=== PATIENT | male | born 1985 | race Caucasian/White ===

== ENCOUNTER 2016-10-07 09:54 | Inpatient (IN) ==
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
[2016-10-07 11:16] LABS: Hematocrit 37.6 % (37.5-50.1); Mean Corpuscular HGB Conc 34.6 g/dL (31.6-35.5); Mean Corpuscular Volume 89.5 fL (83.0-100.0); Mean Platelet Volume 8.8 fL (9.4-12.4); Platelet Count 169 K/mcL (140-400); Red Cell Distribution Width 13.3 % (11.5-14.5)
[2016-10-07 11:18] LABS: VBG PH 7.48 pH Units (7.32-7.42)
[2016-10-07 11:19] LABS: VBG HCO3 23.8 mEq/L (21-27)
[2016-10-07 11:28] LABS: BUN/Creatinine Ratio 11 (6-26); Blood Urea Nitrogen 13 mg/dL (8-26); Calcium 8.6 mg/dL (8.6-10.8); Carbon Dioxide 19 mEq/L (19-29); Chloride 104 mEq/L (98-109); Glucose 140 mg/dL (70-99); Osmolality,Calculated 284 (280-300); Potassium 3.1 mEq/L (3.5-4.5); Sodium 136 mEq/L (136-145); eGFR For African Americans > 60 (> 60); eGFR For Non-African Americans > 60 (> 60)
[2016-10-07 11:30] LABS: Ethanol < 10 mg/dL (0-10)
[2016-10-07 11:47] LABS: Lymphocytes # 0.2 K/mcL (0.6-4.6); Monocytes # 0.2 K/mcL (0.0-1.3); Neutrophils # 8.1 K/mcL (1.6-8.9); Platelet Estimate Normal (Normal)
[2016-10-07] MEDS ORDERED: 0.9 % Sodium Chloride 1,000 ML IVC ONE ×2 (11:54→13:46)
[2016-10-07 13:23] LABS: Amphetamine Screen,Urine Negative ng/mL (Cutoff=1000); Barbiturate Screen,Urine Negative ng/mL (Cutoff=200); Benzodiazepines Screen,Urine Positive ng/mL (Cutoff=200); Cannabinoid Screen,Urine Positive ng/mL (Cutoff = 50); Cocaine Screen,Urine Positive ng/mL (Cutoff= 300); Opiate Screen,Urine Positive ng/mL (Cutoff=300); Phencyclidine Screen,Urine Negative ng/mL (Cutoff=25)
[2016-10-07] MEDS ORDERED: Vancomycin 1,250 MG in D5% in Water 250 ML IVPB ONE (13:46)
[2016-10-07] MEDS ORDERED: Piperacillin/Tazobactam 3.375 GM in D5% in Water (Mini-Bag+) 100 ML IVPB ONE (13:46)
[2016-10-07] MEDS ORDERED: Acetaminophen 325 MG TABLET PO PRN (14:48)
[2016-10-07] MEDS ORDERED: Naloxone 0.4 MG/ML INJ IVP PRN (14:48)
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
--- NOTE | 2016-10-07 16:19 | Electrocardiograph Report ---
[place] [id number] Test Date: 2016-10-07 Pat Name: Javier Madrid Department: 103 Room: 2N4 Gender: M Bench Hand Machine: : 1985 Requested By: Chepe Avilez Order Number: [id number] Reading MD: Mehnaz Bartholomew Measurements Intervals [place] Rate: 118 P: 35 [place]: 136 QRS: 60 QRSD: 90 T: -9 QT: 304 QTc: 374 Interpretive Statements SINUS TACHYCARDIA NONSPECIFIC T-WAVE ABNORMALITY Electronically Signed On 10-07-2016 16:17:33 EST by Menhaz Bartholomew
[2016-10-07 17:03] LABS: Bilirubin,Urine Negative (Negative); Blood,Urine Negative (Negative); Clarity,Urine Clear (Clear); Color,Urine Yellow (Yellow); Glucose,Urine (UA) Normal (Normal); Ketones,Urine Negative (Negative); Leukocyte Esterase,Urine Negative (Negative); Nitrite,Urine Negative (Negative); Protein,Urine Negative (Neg-Trace); Specific Gravity,Urine 1.021 (1.010-1.025); Urobilinogen,Urine Normal (Normal)
[2016-10-07] MEDS: Aspirin 81 MG TAB.CHEW PO SCH (17:45)
[2016-10-07] MEDS: 0.9 % Sodium Chloride w KCl 20 MEQ/1,000 ML MLS IVC SCH (17:45)
[2016-10-07] MEDS: Famotidine 20 MG TABLET PO SCH (20:58)
[2016-10-07] MEDS ORDERED: Piperacillin/Tazobactam 3.375 GM in D5% in Water (Mini-Bag+) 100 ML IVPB SCH (21:00)
[2016-10-08] MEDS: Piperacillin/Tazobactam 3.375 GM in D5% in Water (Mini-Bag+) 100 ML IVPB SCH ×4 (00:42→23:30)
[2016-10-08] MEDS: Vancomycin 1,000 MG in D5% in Water 250 ML IVPB SCH ×2 (02:50→14:19)
[2016-10-08] MEDS ORDERED: Vancomycin 1,000 MG VIAL ONE (03:00)
[2016-10-08] MEDS: 0.9 % Sodium Chloride w KCl 20 MEQ/1,000 ML MLS IVC SCH (05:55)
[2016-10-08 06:00] LABS: Hematocrit 32.7 % (37.5-50.1); Mean Corpuscular HGB Conc 33.9 g/dL (31.6-35.5); Mean Corpuscular Hemoglobin 31.4 pg (28.0-33.3); Mean Corpuscular Volume 92.4 fL (83.0-100.0); Mean Platelet Volume 9.7 fL (9.4-12.4); Platelet Count 145 K/mcL (140-400); Red Blood Count 3.54 M/mcL (4.19-5.50); Red Cell Distribution Width 14.1 % (11.5-14.5)
[2016-10-08] MEDS: *HR* Enoxaparin 40 MG/0.4 ML SYRINGE SQ SCH (06:10)
[2016-10-08 06:17] LABS: Alanine Aminotransferase 44 Units/L (0-55); Albumin 2.6 g/dL (3.5-5.0); Albumin/Globulin Ratio 0.8 (1.1-2.2); Alkaline Phosphatase 37 Units/L (38-126); Aspartate Amino Transferase 41 Units/L (5-34); BUN/Creatinine Ratio 15 (6-26); Bilirubin,Total 0.7 mg/dL (0.2-1.2); Blood Urea Nitrogen 16 mg/dL (8-26); Calcium 7.8 mg/dL (8.6-10.8); Carbon Dioxide 22 mEq/L (19-29); Chloride 114 mEq/L (98-109); Globulin 3.2 g/dL (2.4-3.5); Glucose 117 mg/dL (70-99); Osmolality,Calculated 294 (280-300); Sodium 141 mEq/L (136-145); Total Protein 5.8 g/dL (6.0-8.3); eGFR For African Americans > 60 (> 60); eGFR For Non-African Americans > 60 (> 60)
[2016-10-08 06:18] LABS: Potassium 4.3 mEq/L (3.5-4.5)
[2016-10-08 06:19] LABS: Hemoglobin 11.1 g/dL (12.9-16.9)
[2016-10-08 06:22] LABS: Lymphocytes # 3.1 K/mcL (0.6-4.6); Monocytes # 0.8 K/mcL (0.0-1.3); Neutrophils # 9.2 K/mcL (1.6-8.9)
[2016-10-08 06:26] LABS: Platelet Estimate Normal (Normal); Reactive Lymphocytes Present (Not Present)
--- NOTE | 2016-10-08 07:54 | ECHO - Doppler Report ---
Echo with Saline Contrast Name: Javier Madrid Date of Study: 10/07/2016 Date: 1985 Ht: 68.0 in Medical Record#: [id number] Age: 31 Wt: 153.0 lb Gender: Male BSA: 1.82 Order #: [id number] Location: [facility] Room #: 2NE24 Reading Physician: Benedict St MD, [facility] Airflight Attendants Supervisor: SAMAN WallaceT Ordering Physician: Irineo Gonzales MD Primary Physician: Selene Clayton MD Indications: Sepsis, IV Drug User, Rule out endocarditis Impressions: No evidence of pulmonary hypertension. LVEF 55-60%. No significant valvular dysfunction. No diagnostic vegetation on the aortic, tricuspid or mitral valve. Pulmonic valve not well visualized. If clinically indicated, STEPHANY would provide better diagnostic sensitivity to assess for vegetation. Left Ventricular Wall Motion: Rest Echo Findings All wall segments showed normal motion. Findings: Study Quality * Technically adequate exam. Right Ventricle * Normal right ventricular structure and function. Left Atrium * Normal left atrial size. Right Atrium * Normal right atrial size. Mitral Valve * Normal mitral valve structure and function. Interatrial Septum * No evidence of PFO by color Doppler. Aorta * Normally sized aortic root. Tricuspid Valve * No tricuspid stenosis. * Trace tricuspid regurgitation. * No evidence of pulmonary hypertension. * Estimated RVSP is 13 mmHg. * Estimated RA pressure is 3-5 mmHg. Pulmonic Valve * No pulmonic regurgitation. * No pulmonic stenosis. * Pulmonic valve is not well visualized. Pericardium * There is a trivial pericardial effusion present. Aortic Valve * No aortic regurgitation. * No aortic stenosis. Left Ventricle * LVEF 55-60%. * Normal LV chamber size, wall thickness and function. * Normal left ventricular diastolic function. * No segmental dysfunction. IVC * Normal IVC dimensions and inspiratory collapse. ECG Findings * Normal sinus rhythm. History Congential Heart Disease Contrast: Agitated saline 20 ml. Measurements: BP: 96/ 39 2D Normal Values RVIDd: 2.90 cm <2.7 cm IVSd: 1.00 cm 0.6 - 1.0 cm LVIDd: 4.90 cm 3.7 - 5.6 cm LVPWd: .70 cm 0.6 - 1.1 cm LVIDs: 3.30 cm 1.5 - 3.6 cm AO: 2.20 cm < 4.0 cm LA: 3.10 cm 2.0 - 4.0cm %FS: 32.70 cm >25 % LA volume: 33 Mitral Valve Peak E:.92 m/sec Peak A:.43 m/sec E/A Ratio:2.1 Peak E' Lat [place]:13 cm/s Peak E' Med [place]:11.1 cm/s E/E' Lat Ratio:7.1 E/E' Med Ratio:8.3 Tricuspid Valve TV Regurg Peak Grad: 13.00mmHg TV Regurg Peak Franklin: 1.81m/sec Updated by Benedict St MD, [facility] on 10/08/2016 7:48:47 AM electronically signed on 10/08/2016 7:50:22 AM with status of Final Wall Motion Aguiar: 1=Normal, 2=Hypokinesis, 3=Akinesis, 4=Dyskinesis, 5=Aneurysmal, 6=Hyperkinetic, X=Not Visualized (Blank)=Missing
[2016-10-08] MEDS: Aspirin 81 MG TAB.CHEW PO SCH (08:01)
[2016-10-08] MEDS: Famotidine 20 MG TABLET PO SCH ×2 (08:01→20:19)
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
[2016-10-08] MEDS: 0.9 % Sodium Chloride 1,000 ML IVC SCH (09:26)
--- NOTE | 2016-10-08 10:42 | Cardiology Consult Note ---
<Prashant Travis - Last Filed: 10/08/16 10:40> Date of Encounter: 10/08/16 Time of Encounter: 10:40 Assessment and Plan (1) Hypotension Current Visit: Yes Status: Acute Per Cardiology: SBP in 80's, on IVF. Blood Cx pending. WBC up to 13. Qualifiers: Hypotension type: unspecified hypotension type Qualified Code(s): I95.9 - Hypotension, unspecified (2) IV drug user Current Visit: Yes Status: Chronic Per Cardiology: Reports hx of IV Heroin and Xanax. Tox screen + for cocaine and marijuana. Current echo shows EF 55-60%, no significant valvular dysfunction no evidence of PFO., No segment wall motion abnormalities. Will attempt to obtain past medical records from [facility] for further review and evaluation. Possible STEPHANY this upcoming Monday. Discussion w patient/family: The assessment and plan as outlined above was discussed with the patient who expressed understanding and agreement. All questions were answered. Thank you for involving us in the care of your patient. Please call with any questions. Discussed and reviewed with Dr. Simons. History of Present Illness Consult date: 10/08/16 Requesting physician: Henna Stahl Consult reason: Eval for STEPHANY Chief complaint: Fatigue History of present illness: Mr. Madrid is a 31 year old male with history of hepatitis C and IV drug abuse with heroin and abuse of Xanax. Cardiology consult today for evaluation of potential need for STEPHANY. Patient reports was at [facility] 3 weeks ago and apparently had recommendations for surgical intervention for repair of PFO. However, patient left AMA. Patient reports recent fever with chills and increasing fatigue. He admits to IV heroin abuse about one week ago with Xanax. He denies any alcohol use, other recreational drug use, or smoking. Denies any other past medical problems. Past Med Surg Social Fam HX - Past Medical History Attestation: Yes The following information was validated with the patient. Source: patient, old records reviewed Medical history: other Psychiatric history: anxiety, depression - Past Surgical History Surgical History: other - Social History Smoking Status: Never smoker Smokeless Tobacco Status: No Alcohol use: occasionally Drug use: opiates, marijuana, prescription drug abuse, other Medications and Allergies Citalopram [CeleXA] 20 mg PO DAILY 10/07/16 [History] Allergies No Known Allergies Allergy (Verified 09/14/16 05:23) All Systems Review: A 10-system review of systems was performed and is negative for pertinent findings except as documented above in the HPI. - Constitutional Constitutional: chills, fatigue, fever(s) - Cardiovascular Cardiovascular: as per HPI Physical Examination Vital Signs, Last 4 Hours Temp Pulse Resp BP Pulse Ox 10/08/16 10:10 98.8 F 67 16 80/43 98 General: Conversant, No Apparent Distress HEENT: Atraumatic, Normocephaly, Mucus Membranes Moist Cardiac: Reg Rate and Rhythm, Normal S1 and S2, No Murmur Lungs: Normal Breath Sounds, No Wheeze, Rales, Rhonchi Neuro: Alert and responsive, Other (Somewhat somnolent, flat affect) Abdomen: Soft, Non-Tender Skin: No rashes noted on visualized skin Musculoskeletal: No Chest Wall Tenderness Extremities: No Edema, Normal Pulses Results 10/08/16 05:24 10/08/16 05:24 Lab Results Laboratory Tests 10/07/16 10/07/16 10/08/16 10:59 13:05 05:24 WBC 8.4 13.1 H D Urine Opiates Screen Positive H U Benzodiazepines Scrn Positive H Urine Cocaine Screen Positive H U Marijuana (THC) Screen Positive H ITS Impressions Knee X-Ray 10/07/16 00:00 IMPRESSION: No metallic foreign body visualized. D/ / Kareem Vazquez MD / Kareem Vazquez MD Interpreting Provider: Kareem Vazquez MD Head CT 10/07/16 10:21 IMPRESSION: No acute intracranial abnormality. D/ / Sebastian Chopra MD / Sebastian Chopra MD Interpreting Provider: Sebastian Chopra MD Chest X-Ray 10/07/16 10:33 IMPRESSION: No infiltrate or acute process. D/ / Meagan Falk MD / Meagan Falk MD Interpreting Provider: Meagan Falk MD Chest CTA 10/07/16 11:54 IMPRESSION: No evidence of pulmonary embolism or acute pulmonary abnormality. No acute aortic pathology. D/ / Meagan Falk MD / Meagan Falk MD Interpreting Provider: Meagan Falk MD Brain MRI 10/07/16 16:19 IMPRESSION: 1. No acute intracranial abnormality. 2. Signal abnormality and volume loss within the globi pallidi and periventricular cerebral white matter consistent with sequela of hypoxic/anoxic brain injury that has occurred since 09/11/2016. D/ / Margarito Avina MD / Margarito Avina MD Interpreting Provider: Margarito Avina MD Active Medications Acetaminophen (Tylenol) 650 mg PO Q6HR PRN PRN Reason: Mild Pain (1-3) Stop: 04/08/17 14:49 Aspirin (Aspirin) [address] [facility] Stop: 04/08/17 17:16 Last Admin: 10/08/16 08:01 Dose: 162 mg Citalopram Hydrobromide (Celexa) [address] [facility] Stop: 04/09/17 09:01 Last Admin: 10/08/16 08:01 Dose: 20 mg Enoxaparin Sodium (Lovenox) 40 mg SQ 0600 BOBBY PRN Reason: Protocol Stop: 04/09/17 06:01 Last Admin: 10/08/16 06:10 Dose: 40 mg Famotidine (Pepcid) [address] [facility] Stop: 04/08/17 21:01 Last Admin: 10/08/16 08:01 Dose: 20 mg Vancomycin HCl 1,000 mg/ (Dextrose) 250 mls @ 167 mls/hr IVPB Q12H BOBBY PRN Reason: Protocol Stop: 04/09/17 02:01 Last Admin: 10/08/16 02:50 Dose: 167 mls/hr Piperacillin Sod/Tazobactam (Sod 3.375 gm/ Dextrose) 100 mls @ 25 mls/hr IVPB Q8HR BOBBY PRN Reason: Protocol Stop: 04/09/17 00:01 Last Admin: 10/08/16 07:59 Dose: 25 mls/hr Sodium Chloride (0.9 % Sodium Chloride) 1,000 mls @ 75 mls/hr IVC .[id number] BOBBY Stop: 04/09/17 08:31 Last Admin: 10/08/16 09:26 Dose: 75 mls/hr Naloxone HCl (Narcan) 0.4 mg IVP Q2MIN PRN PRN Reason: Opioid Reversal Stop: 04/08/17 14:49 Ondansetron HCl (Zofran) 4 mg IVP Q8HR PRN PRN Reason: Nausea And Vomiting Stop: 04/08/17 14:49 - Imaging and Cardiology Chest Xray: report reviewed - EKG Interpretation EKG results cardiology: other (Sr on tele) Consult Discharge Plan - Plan Referrals: Selene Clayton MD [Primary Care Provider] - <Ciaran Simons - Last Filed: 10/08/16 10:59> Date of Encounter: 10/08/16 Assessment and Plan Discussion w patient/family: The assessment and plan as outlined above was discussed with the patient and/or family members who expressed understanding and agreement. All questions were answered. Thank you for involving us in the care of your patient. Please call with any questions. History of Present Illness History of present illness: Mr. Madrid is a 31 year old male All Systems Review: A 10-system review of systems was performed and is negative for pertinent findings except as documented above in the HPI. Physical Examination Vital Signs, Last 4 Hours Temp Pulse Resp BP Pulse Ox 10/08/16 10:43 97.9 F 68 18 78/41 97 10/08/16 10:10 98.8 F 67 16 80/43 98 Results 10/08/16 05:24 10/08/16 05:24 Lab Results 10/08/16 10/08/16 05:24 05:24 WBC 13.1 H D Hgb 11.1 L D Hct 32.7 L Plt Count 145 Sodium 141 Potassium 4.3 D Chloride 114 H Carbon Dioxide 22 BUN 16 Creatinine 1.08 Glucose 117 H Calcium 7.8 L Total Bilirubin 0.7 AST 41 H ALT 44 Alkaline Phosphatase 37 L - Attending Attestation Patient was seen, examined and agree with plan as outlined. Patient with polysubstance abuse and bandemia. Echo - no definite vegatation or other abnormality. (negative bubble study) Given bandemia - STEPHANY seems reasonable. Will plan on this Monday Management staff pharmacist hospital will be complicated Thanks for consult.
[2016-10-08] MEDS: Ondansetron 4 MG/2 ML VIAL IVP PRN (16:20)
[2016-10-08] MEDS: *HR* LORazepam 2 MG/ML VIAL IVP PRN (17:23)
[2016-10-09 01:35] LABS: Basophils % 0.3 %; Eosinophils # 0.1 K/mcL (0.0-0.6); Hematocrit 34.9 % (37.5-50.1); Hemoglobin 11.4 g/dL (12.9-16.9); Immature Granulocytes % 0.4 % (0-4); Lymphocytes # 2.8 K/mcL (0.6-4.6); Lymphocytes % 30.8 %; Mean Corpuscular HGB Conc 32.7 g/dL (31.6-35.5); Mean Corpuscular Hemoglobin 30.7 pg (28.0-33.3); Mean Corpuscular Volume 94.1 fL (83.0-100.0); Mean Platelet Volume 9.1 fL (9.4-12.4); Monocytes # 0.8 K/mcL (0.0-1.3); Monocytes % 8.9 %; Neutrophils # 5.2 K/mcL (1.6-8.9); Platelet Count 130 K/mcL (140-400); Red Blood Count 3.71 M/mcL (4.19-5.50); Red Cell Distribution Width 13.7 % (11.5-14.5); Segmented Neutrophils % 58.6 %
[2016-10-09 01:54] LABS: BUN/Creatinine Ratio 11 (6-26); Blood Urea Nitrogen 11 mg/dL (8-26); Calcium 8.6 mg/dL (8.6-10.8); Carbon Dioxide 22 mEq/L (19-29); Chloride 112 mEq/L (98-109); Glucose 163 mg/dL (70-99); Osmolality,Calculated 295 (280-300); Sodium 141 mEq/L (136-145); eGFR For African Americans > 60 (> 60); eGFR For Non-African Americans > 60 (> 60)
[2016-10-09] MEDS: Vancomycin 1,000 MG in D5% in Water 250 ML IVPB SCH (03:05)
[2016-10-09] MEDS: 0.9 % Sodium Chloride 1,000 ML IVC SCH ×2 (03:07→23:39)
[2016-10-09] MEDS: *HR* Enoxaparin 40 MG/0.4 ML SYRINGE SQ SCH (05:41)
--- NOTE | 2016-10-09 07:56 | Cardiology Progress Note ---
Date of Encounter: 10/09/16 Time of Encounter: 08:15 Assessment and Plan (1) Hypotension Current Visit: Yes Status: Acute Per Cardiology: SBP improved to the 100s. Prelim Blood Cx x 1 shows gram + rods. On antibiotics per primary service. WBC improved. Afebrile Qualifiers: Hypotension type: unspecified hypotension type Qualified Code(s): I95.9 - Hypotension, unspecified (2) IV drug user Current Visit: Yes Status: Chronic Per Cardiology: Reports hx of IV Heroin and Xanax. Tox screen + for cocaine and marijuana. Current echo shows EF 55-60%, no significant valvular dysfunction no evidence of PFO, [place]MA. No medical records from [place] recently noted. Plan for possible STEPHANY tomorrow. All questions answered. Discussion w patient/family: The assessment and plan as outlined above was discussed with the patient who expressed understanding and agreement. All questions were answered. Thank you for involving us in the care of your patient. Please call with any questions. Discussed and reviewed with Dr. Simons. Subjective Principal diagnosis: Endocarditis?, Fever, Chills, IVDA Interval history: Patient denies any concerns or complaints overnight. Reports remains tired and fatigued. He denies any chest pain, short of breath, palpitations. Currently agreeable to proceed with STEPHANY if clinically warranted. Objective Selected Entries 10/08/16 20:00 10/09/16 02:47 Temperature 97.4 F L Pulse Rate 56 Respiratory Rate 15 Blood Pressure 109/70 O2 Sat by Pulse Oximetry 98 Oxygen Delivery Method Room Air General: Conversant, No Apparent Distress HEENT: Atraumatic, Normocephaly Cardiac: Reg Rate and Rhythm, Normal S1 and S2, No Murmur Lungs: Normal Breath Sounds, No Wheeze, Rales, Rhonchi Neuro: Alert and responsive, No focal deficits noted, Other (Somnolent) Extremities: No Edema Results 10/09/16 01:17 10/09/16 01:17 Lab Results Active Medications Acetaminophen (Tylenol) 650 mg PO Q6HR PRN PRN Reason: Mild Pain (1-3) Stop: 04/08/17 14:49 Aspirin (Aspirin) 162 mg PO DAILY [facility] Stop: 04/08/17 17:16 Last Admin: 10/08/16 08:01 Dose: 162 mg Citalopram Hydrobromide (Celexa) 20 mg PO DAILY [facility] Stop: 04/09/17 09:01 Last Admin: 10/08/16 08:01 Dose: 20 mg Enoxaparin Sodium (Lovenox) 40 mg SQ 0600 BOBBY PRN Reason: Protocol Stop: 04/09/17 06:01 Last Admin: 10/09/16 05:41 Dose: 40 mg Famotidine (Pepcid) 20 mg PO BID [facility] Stop: 04/08/17 21:01 Last Admin: 10/08/16 20:19 Dose: 20 mg Piperacillin Sod/Tazobactam (Sod 3.375 gm/ Dextrose) 100 mls @ 25 mls/hr IVPB Q8HR BOBBY PRN Reason: Protocol Stop: 04/09/17 00:01 Last Admin: 10/08/16 23:30 Dose: 25 mls/hr Sodium Chloride (0.9 % Sodium Chloride) 1,000 mls @ 75 mls/hr IVC .[id number] [facility] Stop: 04/09/17 08:31 Last Admin: 10/09/16 03:07 Dose: 75 mls/hr Vancomycin HCl 1,250 mg/ (Dextrose) 250 mls @ 166.67 mls/hr IVPB Q12H [facility] Stop: 04/10/17 14:01 Lorazepam (Ativan) 2 mg IVP Q4H PRN PRN Reason: Anxiety Stop: 04/09/17 16:21 Last Admin: 10/08/16 17:23 Dose: 2 mg Naloxone HCl (Narcan) 0.4 mg IVP Q2MIN PRN PRN Reason: Opioid Reversal Stop: 04/08/17 14:49 Ondansetron HCl (Zofran) 4 mg IVP Q8HR PRN PRN Reason: Nausea And Vomiting Stop: 04/08/17 14:49 Last Admin: 10/08/16 16:20 Dose: 4 mg - EKG Interpretation EKG results cardiology: other (24-hour monitor reviewed with average heart rate 64, sinus bradycardia to sinus rhythm, no significant events appreciated) Consult Discharge Plan - Plan Referrals: Selene Clayton MD [Primary Care Provider] -
[2016-10-09] MEDS: Aspirin 81 MG TAB.CHEW PO SCH (09:46)
[2016-10-09] MEDS: Famotidine 20 MG TABLET PO SCH ×2 (09:47→20:14)
[2016-10-09] MEDS: Piperacillin/Tazobactam 3.375 GM in D5% in Water (Mini-Bag+) 100 ML IVPB SCH (09:47)
[2016-10-09] MEDS: *HR* LORazepam 2 MG/ML VIAL IVP PRN ×3 (09:53→21:19)
--- NOTE | 2016-10-09 10:38 | Internal Med Progress Note ---
Date of Encounter: 10/09/16 Time of Encounter: 10:34 - Assessment and plan (1) Bandemia Current Visit: Yes Status: Acute Assessment and plan: Improved now. No source of infection identified. One out of 2 initial blood cultures grew gram-positive rods, which is likely a contaminant. Continue vancomycin and change Zosyn to Rocephin until negative blood cultures and negative STEPHANY. 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 Continue aspirin. Check lipid profile. Physical therapy evaluation pending, occupational therapy recommends no further treatment. Supportive care and fall precautions. Qualifiers: CVA mechanism: embolism Precerebral and cerebral artery: unspecified cerebral artery Qualified Code(s): I63.40 - Cerebral infarction due to embolism of unspecified cerebral artery (4) Hepatitis C Current Visit: Yes Status: Chronic Assessment and plan: Treatment naive. Needs outpatient follow-up. Qualifiers: Viral hepatitis chronicity: chronic Hepatic coma status: without hepatic coma Qualified Code(s): B18.2 - Chronic viral hepatitis C (5) IV drug user Current Visit: Yes Status: Chronic Assessment and plan: Active polysubstance abuse along with IV heroine use. IV hydration and supportive care. account services associate consult for safe discharge and rehabilitation resources. - Subjective Interval history: Reports feeling better. No chest pain or shortness of breath. No fever, chills , fatigue. Continues to have some pain in his right hand. Able to participate in physical therapy. Had diarrhea and anxiety yesterday, which are currently improved. Awaiting STEPHANY tomorrow. - Constitutional Vitals: Temp Pulse Resp BP Pulse Ox 98.3 F 59 19 93/56 96 10/09/16 08:17 10/09/16 08:17 10/09/16 08:17 10/09/16 08:10/09/16 10:00 General appearance: Present: A&O X 3, answers questions appropriately - Respiratory Respiratory exam: Present: CTAB. Absent: accessory muscle use, rales, rhonchi, wheezes - Cardiovascular Cardiovascular exam: Present: bradycardia, RRR, +S1, +S2. Absent: diastolic murmur, gallop, rubs, systolic murmur - GI/Abdominal GI/Abdominal exam: Present: normal bowel sounds, soft, no peritoneal signs. Absent: distended, tenderness - Extremities Exam Extremities exam: Present: full ROM, warm, radial pulses palpable and symetrical. Absent: calf tenderness, cyanotic, pedal edema Internal Medicine: Result - Labs CBC & Chem 7: 10/09/16 01:17 10/09/16 01:17 Labs: Short CBC 10/09/16 Range/Units 01:17 WBC 9.0 (4.3-11.1) K/mcL Hgb 11.4 L (12.9-16.9) g/dL Hct 34.9 L (37.5-50.1) % Plt Count 130 L (140-400) K/mcL Neutrophils # 5.2 (1.6-8.9) K/mcL BMP 10/09/16 01:17 Sodium 141 Potassium 4.0 Chloride 112 H Carbon Dioxide 22 BUN 11 Creatinine 1.04 Glucose 163 H Calcium 8.6 Consult Discharge Plan - Plan Referrals: Selene Clayton MD [Primary Care Provider] -
[2016-10-09] MEDS ORDERED: Vancomycin 1,000 MG in D5% in Water 250 ML IVPB SCH (11:00)
[2016-10-09] MEDS: Vancomycin 1,250 MG in D5% in Water 250 ML IVPB SCH (16:33)
[2016-10-09] MEDS ORDERED: Nystatin POWDER 30 GM BOTTLE TP SCH (21:00)
[2016-10-10] MEDS: Vancomycin 1,250 MG in D5% in Water 250 ML IVPB SCH ×2 (02:55→15:38)
[2016-10-10] MEDS: *HR* Enoxaparin 40 MG/0.4 ML SYRINGE SQ SCH (06:14)
[2016-10-10 06:43] LABS: Basophils % 0.6 %; Eosinophils # 0.1 K/mcL (0.0-0.6); Eosinophils % 1.4 %; Hematocrit 38.3 % (37.5-50.1); Immature Granulocytes % 0.3 % (0-4); Lymphocytes # 2.9 K/mcL (0.6-4.6); Mean Corpuscular HGB Conc 34.5 g/dL (31.6-35.5); Mean Corpuscular Hemoglobin 31.2 pg (28.0-33.3); Mean Corpuscular Volume 90.5 fL (83.0-100.0); Mean Platelet Volume 9.8 fL (9.4-12.4); Monocytes # 0.6 K/mcL (0.0-1.3); Monocytes % 8.7 %; Neutrophils # 3.5 K/mcL (1.6-8.9); Platelet Count 204 K/mcL (140-400); Red Blood Count 4.23 M/mcL (4.19-5.50); Red Cell Distribution Width 13.2 % (11.5-14.5)
[2016-10-10 06:48] LABS: Hemoglobin 13.2 g/dL (12.9-16.9)
[2016-10-10 07:04] LABS: Chol/HDL Ratio 3.9 (0-4.9)
[2016-10-10] MEDS: *HR* LORazepam 2 MG/ML VIAL IVP PRN ×3 (07:52→19:45)
--- NOTE | 2016-10-10 10:00 | Event Note ---
Date of Encounter: 10/10/16 Time of Encounter: 09:30 - Cardiology Event Note Laboratory Tests 10/10/16 06:04 WBC 7.1 Patient discussed and reviewed with Dr. Hensley and Dr. Faustin, plan for STEPHANY today. No medical records received from hospital. Further recommendations after STEPHANY. Patient remains agreeable to proceed. All questions answered.
[2016-10-10] MEDS: Famotidine 20 MG TABLET PO SCH ×2 (10:55→19:45)
[2016-10-10] MEDS: Aspirin 81 MG TAB.CHEW PO SCH (10:55)
--- NOTE | 2016-10-10 12:32 | Internal Med Progress Note ---
Date of Encounter: 10/10/16 Time of Encounter: 12:30 - Assessment and plan (1) Opiate withdrawal Current Visit: Yes Status: Acute Assessment and plan: Patient is an active polysubstance abuser including IV heroine. He does have some anxiety, diarrhea due to withdrawal. Continue supportive care and when necessary IV Ativan and PO Imodium. Avoid narcotics. (2) Bandemia Current Visit: Yes Status: Acute Assessment and plan: Improved now. No source of infection identified. One out of 2 initial blood cultures grew gram-positive rods, which is likely a contaminant. Follow-up repeat blood cultures. Continue vancomycin and Rocephin until negative blood cultures and negative STEPHANY. 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 Continue aspirin, changed to 81 mg daily. lipid profile noted to be within normal limits. Physical therapy screen and occupational therapy recommends no further treatment. Supportive care; Qualifiers: CVA mechanism: embolism Precerebral and cerebral artery: unspecified cerebral artery Qualified Code(s): I63.40 - Cerebral infarction due to embolism of unspecified cerebral artery (5) Hepatitis C Current Visit: Yes Status: Chronic Qualifiers: Viral hepatitis chronicity: chronic Hepatic coma status: without hepatic coma Qualified Code(s): B18.2 - Chronic viral hepatitis C (6) IV drug user Current Visit: Yes Status: Chronic Assessment and plan: Active polysubstance abuse along with IV heroine use. IV hydration and supportive care. real estate services administrator consult for safe discharge and rehabilitation resources. - Subjective Interval history: Noted to be slightly drowsy but arousable. Offers no new complaints. No fever , weakness, chest pain or dyspnea. Awaiting transesophageal echo today. - Constitutional Vitals: Temp Pulse Resp BP Pulse Ox 98.9 F 54 16 96/58 99 10/10/16 11:57 10/10/16 11:57 10/10/16 11:57 10/10/16 11:57 10/10/16 11:57 General appearance: Present: A&O X 3, answers questions appropriately - Respiratory Respiratory exam: Present: CTAB. Absent: accessory muscle use, rales, rhonchi, wheezes - Cardiovascular Cardiovascular exam: Present: RRR, +S1, +S2. Absent: diastolic murmur, gallop, rubs, systolic murmur - GI/Abdominal GI/Abdominal exam: Present: normal bowel sounds, soft, no peritoneal signs. Absent: distended, tenderness - Extremities Exam Extremities exam: Present: warm, radial pulses palpable and symetrical. Absent : calf tenderness, cyanotic, pedal edema Internal Medicine: Result - Labs CBC & Chem 7: 10/10/16 06:04 10/09/16 01:17 Labs: Short CBC 10/10/16 Range/Units 06:04 WBC 7.1 (4.3-11.1) K/mcL Hgb 13.2 D (12.9-16.9) g/dL Hct 38.3 (37.5-50.1) % Plt Count 204 D (140-400) K/mcL Neutrophils # 3.5 (1.6-8.9) K/mcL Consult Discharge Plan - Plan Referrals: Selene Clayton MD [Primary Care Provider] -
[2016-10-10] MEDS ORDERED: 0.9 % Sodium Chloride 500 ML IVC ONE ×2 (13:13→14:45)
[2016-10-10] MEDS ORDERED: Tetracaine/Benzocaine/Butamben 200MG/SPRAY (100SPY/BOT) MM ONE (13:13)
[2016-10-10] MEDS: *HR* FentaNYL (PF) 100 MCG/2 ML VIAL IVP PRN ×2 (14:05→14:10)
[2016-10-10] MEDS: *HR* Midazolam HCl 5 MG/5 ML VIAL IVP PRN ×4 (14:05→14:20)
--- NOTE | 2016-10-10 16:32 | ECHO - Doppler Report ---
Transesophageal Echocardiogram Name: Javier Madrid Date of Study: 10/10/2016 Date: 1985 Ht: 67.0in Medical Record#: [id number] Age: 31 Wt: 160.0lb Gender: Male BSA: 1.84 Order #: [id number] Location: [facility] Room #: 2NE24 Reading Physician: Mandi Faustin DO Nutrition Technician: Anuj Mijares RDCS Ordering Physician: Prashant Travis CNP Primary Physician: Selene Clayton MD Indications: R/O Endocarditis Impressions: Technically somewhat challenging exam. Patient moving during examination. Required large amount of sedation. Overall, LV and RV function are normal. There is an echodensity seen in the mid-esophageal 5-CH view that comes in and out of focus, suspicous for a vegetation. Sclerotic aortic valve. No aortic regurgitation. Cardiology service aware of findings. Medication Given: Time Medication Dose Units Route 14:05 Versed 2 mg IV 14:05 Fentanyl 50 mcg IV 14:10 Versed 2 mg IV 14:10 Fentanyl 50 mcg IV 14:15 Versed 3 mg IV 14:15 Benadryl 50 mg IV 14:20 Versed 3 mg IV 14:25 Fentanyl 50 mcg IV 14:25 Benadryl 50 mg IV Findings: Study Quality * Technically challenging study. Patient was unable to be completely sedated, requiring large amounts of sedatives. ECG Findings * Normal sinus rhythm Left Ventricle * Normal size and function. Right Ventricle * The right ventricle was normal in size and systolic function. Left Atrium * Within normal limits. * LA appendage is normal in appearance. Right Atrium * Within normal limits. Aortic Valve * No aortic regurgitation. * The aortic valve is Tricuspid and sclerotic. * There is an echodensity seen coming in and out of focus in the ME 5CH view. This is not seen in the long axis view. Mitral Valve * Normal structure and function * No mitral regurgitation. Tricuspid Valve * Normal structure and function. * no tricuspid regurgitation. Pulmonic Valve * Not well visualized. * No pulmonic regurgitation. Aorta * The aortic root is not dilated. Procedure Summary: After explaining the risks, benefits, and alternatives of the procedure to the patient in detail and answering all questions to satisfaction, an informed consent was obtained in writing. The patient was NPO for the six hours prior to the procedure. The patient denied dysphagia, odynophagia, and loose teeth. The patient was monitored with periodic automated blood pressures and continuous pulse oximetry and telemetry. Continuous oxygen was administered by NV. The patient was placed in the full upright position and the posterior oropharynx was anesthetized as above and complete suppression of the gag reflex was obtained. The patient was then placed in the left lateral decubitus position, the neck was flexed, and a bite block was placed in the patient's mouth. IV sedation was administered. Once adequate sedation was achieved, a well-lubricated anteflexed multipoint intraesophageal echocardiographic probe was inserted into the midline posterior oropharynx. Gentle pressure was applied as the patient swallowed and the esophagus was intubated without difficulty. The scope was advanced to the mid esophagus without encountering resistance. Images were obtained from the mid and upper esophagus. Images from the gastric globe were not obtained. The intra-atrial septum was assessed by color-flow Doppler and agitated saline. The scope was then rotated approximately 180 degrees and withdrawn, visualizing the length of the aorta. The scope was then slowly withdrawn as the patient was continually suctioned. The patient tolerated the procedure well. Complications: None History: Years 6 Packs 0.5 Congestive Heart Failure Previous Echo10/07/2016 BP 112 / 76 Updated by Mandi Faustin on 10/10/2016 4:23:37 PM electronically signed on 10/10/2016 4:26:57 PM with status of Final Wall Motion Aguiar: 1=Normal, 2=Hypokinesis, 3=Akinesis, 4=Dyskinesis, 5=Aneurysmal, 6=Hyperkinetic, X=Not Visualized (Blank)=Missing
[2016-10-10] MEDS: 0.9 % Sodium Chloride 1,000 ML IVC SCH (18:30)
[2016-10-11] MEDS: *HR* LORazepam 2 MG/ML VIAL IVP PRN ×7 (01:27→22:50)
[2016-10-11] MEDS: Vancomycin 1,250 MG in D5% in Water 250 ML IVPB SCH ×2 (01:28→13:33)
[2016-10-11 02:04] LABS: Basophils # 0.1 K/mcL (0.0-0.2); Basophils % 0.9 %; Eosinophils # 0.1 K/mcL (0.0-0.6); Hemoglobin 13.4 g/dL (12.9-16.9); Immature Granulocytes % 0.9 % (0-4); Lymphocytes # 2.8 K/mcL (0.6-4.6); Lymphocytes % 42.6 %; Mean Corpuscular HGB Conc 33.5 g/dL (31.6-35.5); Mean Corpuscular Hemoglobin 30.5 pg (28.0-33.3); Mean Corpuscular Volume 91.1 fL (83.0-100.0); Mean Platelet Volume 9.5 fL (9.4-12.4); Monocytes # 0.6 K/mcL (0.0-1.3); Monocytes % 9.7 %; Neutrophils # 2.9 K/mcL (1.6-8.9); Platelet Count 218 K/mcL (140-400); Red Blood Count 4.39 M/mcL (4.19-5.50); Red Cell Distribution Width 13.2 % (11.5-14.5); Segmented Neutrophils % 43.9 %
[2016-10-11] MEDS: *HR* Enoxaparin 40 MG/0.4 ML SYRINGE SQ SCH (06:18)
--- NOTE | 2016-10-11 08:44 | Cardiology Progress Note ---
Date of Encounter: 10/11/16 Time of Encounter: 08:45 Assessment and Plan (1) Hypotension Current Visit: Yes Status: Acute Per Cardiology: SBP 80's - 90's. Prelim Blood Cx x 1 shows gram + rods. On antibiotics per primary service. WBC improved. Afebrile Qualifiers: Hypotension type: unspecified hypotension type Qualified Code(s): I95.9 - Hypotension, unspecified (2) IV drug user Current Visit: Yes Status: Chronic Per Cardiology: Reports hx of IV Heroin and Xanax. Tox screen + for cocaine and marijuana. Current echo shows EF 55-60%, no significant valvular dysfunction no evidence of PFO, NSWMA. No medical records from [place] recently noted. S/p STEPHANY yesterday which showed echodensity suspicious of vegetation, technically challenging study. Discussed with Dr. Hensley with recommendations for IV antibiotics 4-6 weeks and aspirin. Recommend ID consult if deemed appropriate. anticipate will need placement for IV antibiotic treatment. All questions answered. Patient highly encouraged to cease drug abuse. Cardiology will sign off, reconsult as needed, follow up in outpatient setting for potential repeat STEPHANY once antibiotic treatment completed. Follow-up appointment scheduled. Discussion w patient/family: The assessment and plan as outlined above was discussed with the patient who expressed understanding and agreement. All questions were answered. Thank you for involving us in the care of your patient. Please call with any questions. Discussed and reviewed with Dr. Hensley. Subjective Principal diagnosis: Endocarditis?, Fever, Chills, IVDA Interval history: Patient denies any concerns or complaints overnight. Reports remains tired and fatigued. He denies any chest pain, shortness of breath, palpitations. Objective Vital Signs, Last 4 Hours Temp Pulse Resp BP Pulse Ox 10/11/16 08:35 97.6 F 54 16 95/55 97 10/11/16 08:00 96 10/11/16 05:00 97.7 F 52 15 87/56 General: Conversant, No Apparent Distress HEENT: Atraumatic, Normocephaly, Mucus Membranes Moist Cardiac: Reg Rate and Rhythm, Normal S1 and S2, No Murmur Lungs: Normal Breath Sounds, No Wheeze, Rales, Rhonchi Neuro: Alert and responsive, No focal deficits noted Extremities: No Edema Results 10/11/16 00:58 10/09/16 01:17 Lab Results Laboratory Tests 10/11/16 00:58 WBC 6.5 Active Medications Acetaminophen (Tylenol) 650 mg PO Q6HR PRN PRN Reason: Mild Pain (1-3) Stop: 04/08/17 14:49 Aspirin (Aspirin) 81 mg PO DAILY [facility] Stop: 04/12/17 09:01 Citalopram Hydrobromide (Celexa) 20 mg PO DAILY [facility] Stop: 04/09/17 09:01 Last Admin: 10/10/16 10:55 Dose: 20 mg Diphenhydramine HCl (Benadryl) 25 mg IVP Q3MIN PRN PRN Reason: Sedation Stop: 04/11/17 13:16 Last Admin: 10/10/16 14:15 Dose: 25 mg Enoxaparin Sodium (Lovenox) 40 mg SQ 0600 BOBBY PRN Reason: Protocol Stop: 04/09/17 06:01 Last Admin: 10/11/16 06:18 Dose: 40 mg Famotidine (Pepcid) 20 mg PO BID [facility] Stop: 04/08/17 21:01 Last Admin: 10/10/16 19:45 Dose: 20 mg Fentanyl Citrate (Fentanyl (Pf)) 50 mcg IVP Q3MIN PRN PRN Reason: Sedation Stop: 04/11/17 13:16 Last Admin: 10/10/16 14:10 Dose: 50 mcg Sodium Chloride (0.9 % Sodium Chloride) 1,000 mls @ 75 mls/hr IVC .[id number] [facility] Stop: 04/09/17 08:31 Last Admin: 10/10/16 18:30 Dose: 75 mls/hr Vancomycin HCl 1,250 mg/ (Dextrose) 250 mls @ 166.67 mls/hr IVPB Q12H [facility] Stop: 04/10/17 14:01 Last Infusion: 10/11/16 03:20 Dose: 166.67 mls/hr Ceftriaxone Sodium 2,000 mg/ (Dextrose) 100 mls @ 200 mls/hr IVPB Q12HR [facility] Stop: 04/10/17 18:01 Last Admin: 10/11/16 06:18 Dose: 200 mls/hr Loperamide HCl (Imodium) 2 mg PO Q4HR PRN PRN Reason: Diarrhea Stop: 04/10/17 18:53 Last Admin: 10/10/16 07:52 Dose: 2 mg Lorazepam (Ativan) 4 mg IVP Q4H PRN PRN Reason: Anxiety Stop: 04/09/17 16:21 Last Admin: 10/11/16 01:27 Dose: 4 mg Midazolam HCl (Versed) 2 mg IVP Q3MIN PRN PRN Reason: Sedation Stop: 04/11/17 13:16 Last Admin: 10/10/16 14:20 Dose: 2 mg Naloxone HCl (Narcan) 0.4 mg IVP Q2MIN PRN PRN Reason: Opioid Reversal Stop: 04/08/17 14:49 Ondansetron HCl (Zofran) 4 mg IVP Q8HR PRN PRN Reason: Nausea And Vomiting Stop: 04/08/17 14:49 Last Admin: 10/08/16 16:20 Dose: 4 mg - Imaging and Cardiology Other Results: STEPHANY - EKG Interpretation EKG results cardiology: other (SR on tele) Consult Discharge Plan - Plan Referrals: Selene Clayton MD [Primary Care Provider] -
[2016-10-11] MEDS: Famotidine 20 MG TABLET PO SCH ×2 (09:42→20:11)
[2016-10-11] MEDS: Aspirin 81 MG TAB.CHEW PO SCH (09:51)
[2016-10-11] MEDS: 0.9 % Sodium Chloride 1,000 ML IVC SCH ×2 (12:34→13:34)
[2016-10-11] MEDS: Ondansetron 4 MG/2 ML VIAL IVP PRN (13:40)
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
--- NOTE | 2016-10-11 17:13 | Internal Med Progress Note ---
Date of Encounter: 10/11/16 Time of Encounter: 10:00 - Assessment and plan (1) Bandemia Current Visit: Yes Status: Acute Assessment and plan: Improved now. No source of infection identified. One out of 2 initial blood cultures grew gram-positive rods, which is likely a contaminant. Follow-up repeat blood cultures. Continue vancomycin and Rocephin. Patient is at high risk because of his vancomycin, need close monitoring (2) Bacteremia Current Visit: Yes Status: Acute Assessment and plan: Patient has a history of IV drug use. Contamination versus true bacteremia. ID and the cardio consult appreciated. On antibiotics right now, will follow up final culture results. (3) Endocarditis Current Visit: Yes Status: Acute Assessment and plan: STEPHANY shows a questionable vegetation. Patient possibly needs a long-term antibiotic. Patient is noncompliant with history of AMA previously. ID recommend patient has IV antibiotic in the [facility] facility Qualifiers: Endocarditis type: infective Infective endocarditis organism: unspecified organism Chronicity: acute Qualified Code(s): I33.0 - Acute and subacute infective endocarditis (4) PFO (patent foramen ovale) Current Visit: Yes Status: Acute Assessment and plan: Patient has declined surgery previously (5) Sepsis Current Visit: Yes Status: Acute Assessment and plan: We will continue antibiotic. Continue IV fluid. Lactate acid level is not high. 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 Continue aspirin, changed to 81 mg daily. lipid profile noted to be within normal limits. Physical therapy screen and occupational therapy recommends no further treatment. Supportive care. Qualifiers: CVA mechanism: embolism Precerebral and cerebral artery: unspecified cerebral artery Qualified Code(s): I63.40 - Cerebral infarction due to embolism of unspecified cerebral artery (7) Hepatitis C Current Visit: Yes Status: Chronic Assessment and plan: Treatment naive. Needs outpatient follow-up. Qualifiers: Viral hepatitis chronicity: chronic Hepatic coma status: without hepatic coma Qualified Code(s): B18.2 - Chronic viral hepatitis C (8) IV drug user Current Visit: Yes Status: Chronic Assessment and plan: Active polysubstance abuse along with IV heroine use. IV hydration and supportive care. office services assistant consult for safe discharge and rehabilitation resources. (9) Acute encephalopathy Current Visit: Yes Status: Resolved Assessment and plan: Could be related to substance abuse, recent stroke, possibility of underlying infection/sepsis. Encephalopathy is currently improved and patient is back to baseline mental status. (10) DVT prophylaxis Current Visit: Yes Status: Acute Assessment and plan: Lovenox subcutaneously - Subjective Interval history: Patient is a 31-year-old male admitted for confusion. His past medical history is significant for IV drug use, CVA. Patient was found positive blood culture. Cardiology and ID consult appreciated. I have seen and examined the patient. He denies chest pain or shortness of breath. No fever. Vitals are stable. Repeat blood culture negative 2. However, STEPHANY shows questionable vegetations. Will consider long-term IV antibiotic in the [facility] facility. We will follow up final culture report. Patient is on vancomycin and Rocephin now. - Constitutional Vitals: Temp Pulse Resp BP Pulse Ox 97.7 F 68 16 106/58 97 10/11/16 15:15 10/11/16 15:15 10/11/16 15:15 10/11/16 15:15 10/11/16 15:15 General appearance: Present: A&O X 3, answers questions appropriately - Head Head exam: Present: atraumatic, normocephalic - Eye Eye exam: Present: PERRL, conjuntiva pink, sclera anicteric Pupils: Present: PERRL - Neck Neck exam general surgery: Present: supple, trachea midline. Absent: lymphadenopathy - Respiratory Respiratory exam: Present: CTAB. Absent: accessory muscle use, rales, rhonchi, wheezes - Cardiovascular Cardiovascular exam: Present: RRR, +S1, +S2. Absent: diastolic murmur, gallop, rubs, systolic murmur - GI/Abdominal GI/Abdominal exam: Present: normal bowel sounds, soft, no peritoneal signs. Absent: distended, tenderness - Extremities Exam Extremities exam: Present: warm, radial pulses palpable and symetrical. Absent : calf tenderness, cyanotic, pedal edema - Neurological Exam Neurological exam: Present: CN II-XII intact, oriented X3, no focal deficits. Absent: pronater drift, facial droop, speech deficit - Skin Skin exam: Present: dry, intact Internal Medicine: Result - Labs CBC & Chem 7: 10/11/16 00:58 10/09/16 01:17 Labs: Short CBC 10/11/16 Range/Units 00:58 WBC 6.5 (4.3-11.1) K/mcL Hgb 13.4 (12.9-16.9) g/dL Hct 40.0 (37.5-50.1) % Plt Count 218 (140-400) K/mcL Neutrophils # 2.9 (1.6-8.9) K/mcL Consult Discharge Plan - Plan Referrals: Selene Clayton MD [Primary Care Provider] - 10/18/16 2:00 pm Mandi Faustin DO [Partnered Physician] - 10/13/16 9:20 am
[2016-10-12] MEDS: *HR* LORazepam 2 MG/ML VIAL IVP PRN ×4 (00:53→17:45)
[2016-10-12] MEDS: Vancomycin 1,250 MG in D5% in Water 250 ML IVPB SCH (02:33)
[2016-10-12] MEDS: *HR* Enoxaparin 40 MG/0.4 ML SYRINGE SQ SCH (05:25)
[2016-10-12 05:27] LABS: Basophils # 0.1 K/mcL (0.0-0.2); Basophils % 0.8 %; Eosinophils # 0.1 K/mcL (0.0-0.6); Eosinophils % 1.7 %; Hematocrit 40.3 % (37.5-50.1); Immature Granulocytes % 1.9 % (0-4); Lymphocytes # 2.6 K/mcL (0.6-4.6); Lymphocytes % 34.4 %; Mean Corpuscular HGB Conc 34.7 g/dL (31.6-35.5); Mean Corpuscular Hemoglobin 30.8 pg (28.0-33.3); Mean Corpuscular Volume 88.8 fL (83.0-100.0); Mean Platelet Volume 9.3 fL (9.4-12.4); Monocytes # 0.6 K/mcL (0.0-1.3); Monocytes % 8.4 %; Neutrophils # 3.9 K/mcL (1.6-8.9); Platelet Count 212 K/mcL (140-400); Red Blood Count 4.54 M/mcL (4.19-5.50); Red Cell Distribution Width 12.8 % (11.5-14.5); Segmented Neutrophils % 52.8 %
[2016-10-12 05:47] LABS: BUN/Creatinine Ratio 11 (6-26); Blood Urea Nitrogen 9 mg/dL (8-26); Calcium 8.5 mg/dL (8.6-10.8); Carbon Dioxide 23 mEq/L (19-29); Chloride 109 mEq/L (98-109); Glucose 91 mg/dL (70-99); Osmolality,Calculated 288 (280-300); Potassium 3.5 mEq/L (3.5-4.5); Sodium 140 mEq/L (136-145); eGFR For African Americans > 60 (> 60); eGFR For Non-African Americans > 60 (> 60)
[2016-10-12] MEDS ORDERED: *HR* LORazepam 2 MG/ML VIAL IVP PRN (08:01)
--- NOTE | 2016-10-12 11:10 | Infectious Disease Progress No ---
Date of Encounter: 10/12/16 Time of Encounter: 09:30 - Assessment and Plan (1) Sepsis Current Visit: Yes Status: Acute The patient had three SIRS criteria on admission. Lactic acid normal on admission. Received IV fluid resuscitation in the ED. Does not require vasopressors. Secondary to bacteremia vs. infective endocarditis. Improved. Tachycardia and bandemia have resolved. He continues to have intermittent hypotension. Blood cultures obtained 10/07/16 are positive 1/2 sets for GPR. Sent to reference lab for final ID. Repeat blood cultures drawn 10/09/16 are NGTD. Qualifiers: Sepsis type: sepsis due to unspecified organism Qualified Code(s): A41.9 - Sepsis, unspecified organism (2) Bacteremia Current Visit: Yes Status: Acute True infection vs. contaminant. Causative organism unclear. Blood cultures drawn 10/07/16 are positive 1/2 sets for GPR. PCR did not machine operator hop picker anything. Specimen sent to reference lab for ID. Repeat blood cultures drawn 10/09/[address] chest negative for septic emboli. MRI of the brain negative for septic emboli. The patient has one major and one minor Burton's Criteria. Started on empiric IV antibiotics - Vanc and Rocephin. Await final ID and sensitivities. It is possible that this is a contaminant; however, given the patient's history of IVDU, recent illness, and possible vegetation on STEPHANY, we will need to base our further course of treatment on the final ID. Continue Vancomycin IV for now (day 6). Pharmacy to dose. Goal trough approximately 15. Continue Rocephin 2 grams IV Q12H for now (day 4). Monitor renal function and for drug toxicity and dose-adjust antibiotics. Duration of treatment depends on the clinical picture. (3) Endocarditis Current Visit: Yes Status: Acute Causative organism unclear. Patient has positive blood cultures, but this could possible be a contaminant. Awaiting final ID and sensitivities. Echodensity noted during STEPHANY, but could not get patient adequately sedated to get a good look. Not sure if repeating STEPHANY with anethesia to get an adequate look to ensure this is actually a vegetation would be an option. Will discuss with cardiology. Repeat blood cultures drawn 10/09/16 are NGTD. No endocarditis stigmata noted on exam. The patient meets one major and one minor Burton's criteria making this possible IE. Rheumatoid factor negative. Coxiella burnettii antibody pending. Continue antibiotics as above for now. Duration of treatment depends on the clinical picture, but likely 6 weeks of IV antibiotics. I discussed the potential diagnosis and plan of care with the patient at length, including the possible need for long-term IV antibiotics which would require that he be placed in an ECF for the duration of his antibiotic treatment. Given his recent history of signing out AMA, I am not sure that he will remain compliant with this and I don't think starting long- term antibiotics are in his best interest if he does not commit to completing the entire duration of treatment as this places him at high risk for developing resistant bacterial infections. We discussed the risks, benefits, and alternatives to treatment. He states he would like to proceed with long-term IV antibiotics. account services coordinator has been consulted and is following. Qualifiers: Endocarditis type: infective Infective endocarditis organism: unspecified organism Chronicity: acute Qualified Code(s): I33.0 - Acute and subacute infective endocarditis (4) PFO (patent foramen ovale) Current Visit: Yes Status: Acute Patient declined surgery. (5) Acute encephalopathy Current Visit: Yes Status: Resolved (6) CVA (cerebral vascular accident) Current Visit: Yes Status: Chronic Possibly secondary to PFO. MRI shows findings consistent with hypoxic/anoxic brain injury, but no new emboli. Qualifiers: CVA mechanism: embolism Precerebral and cerebral artery: unspecified cerebral artery Qualified Code(s): I63.40 - Cerebral infarction due to embolism of unspecified cerebral artery (7) IV drug user Current Visit: Yes Status: Chronic Check HIV and Hepatitis Profile. I have advised the patient we will be testing for this and he is agreeable--> pending. Last used IV heroin 1 week ago. Has a previous history of snorting cocaine as well. - Subjective Interval history: Patient seen and examined. No acute events noted overnight. Patient resting quietly in bed with eyes closed. A little difficult to awaken. Denies fevers or chills. Denies chest pain, shortness of breath, or cough. Denies nausea, vomiting, or diarrhea. Denies abdominal pain or urinary complaints. Denies joint or back pain at this time. Denies oral thrush or new skin lesions. Infect Dis PN-Objective Data - Labs CBC & Chem 7: 10/12/16 04:46 10/12/16 04:46 Labs: Laboratory Results - last 24 hr 10/12/16 10/12/16 10/12/16 04:46 04:46 04:46 WBC 7.5 RBC 4.54 Hgb 14.0 Hct 40.3 MCV 88.8 MCH 30.8 MCHC 34.7 RDW 12.8 Plt Count 212 MPV 9.3 L Immature Gran % 1.9 Seg Neutrophils % 52.8 Lymphocytes % 34.4 Monocytes % 8.4 Eosinophils % 1.7 Basophils % 0.8 Neutrophils # 3.9 Lymphocytes # 2.6 Monocytes # 0.6 Eosinophils # 0.1 Basophils # 0.1 Sodium 140 Potassium 3.5 Chloride 109 Carbon Dioxide 23 BUN 9 Creatinine 0.85 Est GFR ( Amer) > 60 Est GFR (Non-Af Amer) > 60 BUN/Creatinine Ratio 11 Glucose 91 Calculated Osmolality 288 Calcium 8.5 L Rheumatoid Factor < 15 Cultures: Cultures 10/09/16 10:42 Blood Culture - Preliminary Peripheral Venipuncture No growth. 10/09/16 10:42 Blood Culture - Preliminary Peripheral Venipuncture No growth. Serology 10/07/16 Range/Units 15:10 Urine Color Yellow (Yellow) Urine Clarity Clear (Clear) Urine pH 7.0 (5.0-8.0) pH Units Ur Specific [place] 1.021 (1.010-1.025) Urine Protein Negative (Neg-Trace) mg/dL Urine Glucose (UA) Normal (Normal) mg/dL Urine Ketones Negative (Negative) mg/dL Urine Blood Negative (Negative) Urine Nitrite Negative (Negative) Urine Bilirubin Negative (Negative) Urine Urobilinogen Normal (Normal) mg/dL Ur Leukocyte Esterase Negative (Negative) Ur Culture Indicated? NO (NO) Exam - Constitutional Vitals: Temp Pulse Resp BP Pulse Ox 97.6 F 61 15 91/44 97 10/12/16 07:39 10/12/16 07:39 10/12/16 07:39 10/12/16 07:39 10/12/16 07:39 General appearance: average body habitus, cooperative, no acute distress - Head Head exam: Present: atraumatic, normal inspection, normocephalic - Eye Eye exam: Present: EOMI, normal appearance, PERRL Pupils: Present: normal accommodation Additional comments: No subconjunctival hemorrhage noted. - ENT ENT exam: Present: mucous membranes moist - Neck Neck exam: Present: normal inspection - Respiratory Respiratory exam: Present: CTAB. Absent: rales, respiratory distress, rhonchi, wheezes - Cardiovascular Cardiovascular exam: Present: RRR, +S1, +S2. Absent: diastolic murmur, systolic murmur - GI/Abdominal GI/Abdominal exam: Present: normal bowel sounds, soft. Absent: distended, tenderness - Extremities Exam Extremities exam: Present: normal inspection. Absent: joint swelling, pedal edema, tenderness Additional comments: No endocarditis stigmata noted. - Back Exam Back exam: Present: normal inspection. Absent: paraspinal tenderness, vertebral tenderness - Neurological Exam Neurological exam: Present: alert, oriented X3, no focal deficits - Psychiatric Psychiatric exam: Present: normal affect, normal mood - Skin Skin exam: Present: dry, intact, normal color, warm Consult Discharge Plan - Plan Referrals: Selene Clayton MD [Primary Care Provider] - 10/18/16 2:00 pm Mandi Faustin DO [Partnered Physician] - 10/13/16 9:20 am
[2016-10-12 11:21] LABS: HIV-1&2 Antibody & p24 Ag Nonreactive (Nonreactive); Hepatitis A Antibody IgM Nonreactive (Nonreactive); Hepatitis B Surface Antigen Nonreactive (Nonreactive)
[2016-10-12] MEDS: Aspirin 81 MG TAB.CHEW PO SCH (11:25)
[2016-10-12] MEDS: Famotidine 20 MG TABLET PO SCH ×2 (11:25→19:44)
[2016-10-12] MEDS: diazePAM 10 MG TABLET PO SCH ×2 (13:54→19:44)
[2016-10-12 14:42] LABS: Hepatitis B Core IgM Grayzone (Nonreactive)
[2016-10-12 14:43] LABS: Hepatitis C Virus Antibody Reactive (Nonreactive)
[2016-10-12] MEDS: Vancomycin 1,750 MG in D5% in Water 500 ML IVPB SCH (15:28)
--- NOTE | 2016-10-12 17:20 | Internal Med Progress Note ---
Date of Encounter: 10/12/16 Time of Encounter: 11:00 - Assessment and plan (1) Bandemia Current Visit: Yes Status: Acute Assessment and plan: Improved now. No source of infection identified. One out of 2 initial blood cultures grew gram-positive rods, repeat blood cultures negative. Continue vancomycin and Rocephin. Patient is at high risk because of his vancomycin, need close monitoring (2) Bacteremia Current Visit: Yes Status: Acute Assessment and plan: Patient has a history of IV drug use. Contamination versus true bacteremia. ID and the cardio consult appreciated. On antibiotics right now, will follow up final culture results. (3) Endocarditis Current Visit: Yes Status: Acute Assessment and plan: STEPHANY shows a questionable vegetation. Patient possibly needs a long-term antibiotic. Patient is noncompliant with history of AMA previously. ID recommend patient has IV antibiotic in the ECF facility. Discussed with the patient today, he agrees to be discharged to ECF. Qualifiers: Endocarditis type: infective Infective endocarditis organism: unspecified organism Chronicity: acute Qualified Code(s): I33.0 - Acute and subacute infective endocarditis (4) PFO (patent foramen ovale) Current Visit: Yes Status: Acute Assessment and plan: Patient has declined surgery previously. May need to follow up with cardiology as outpatient (5) Sepsis Current Visit: Yes Status: Acute Assessment and plan: We will continue antibiotic. Continue IV fluid. Lactate acid level is not high. 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 Continue aspirin, changed to 81 mg daily. lipid profile noted to be within normal limits. Physical therapy screen and occupational therapy recommends no further treatment. Supportive care. Qualifiers: CVA mechanism: embolism Precerebral and cerebral artery: unspecified cerebral artery Qualified Code(s): I63.40 - Cerebral infarction due to embolism of unspecified cerebral artery (7) Hepatitis C Current Visit: Yes Status: Chronic Assessment and plan: Treatment naive. Needs outpatient follow-up. Qualifiers: Viral hepatitis chronicity: chronic Hepatic coma status: without hepatic coma Qualified Code(s): B18.2 - Chronic viral hepatitis C (8) IV drug user Current Visit: Yes Status: Chronic Assessment and plan: Active polysubstance abuse along with IV heroine use. IV hydration and supportive care. technical services consultant consult for safe discharge and rehabilitation resources. (9) Acute encephalopathy Current Visit: Yes Status: Resolved Assessment and plan: Could be related to substance abuse, recent stroke, possibility of underlying infection/sepsis. Encephalopathy is currently improved and patient is back to baseline mental status. (10) DVT prophylaxis Current Visit: Yes Status: Acute Assessment and plan: Lovenox subcutaneously - Time Spent With Patient Greater than 35 minutes - Subjective Interval history: Patient is a 31-year-old male admitted for confusion. His past medical history is significant for IV drug use, CVA. Patient was found positive blood culture. Cardiology and ID consult appreciated. I have seen and examined the patient. He denies chest pain or shortness of breath. No fever. Vitals are stable. Repeat blood culture negative 2. However, STEPHANY shows questionable vegetations. Will consider long-term IV antibiotic in the [facility] facility. We will follow up final culture report. Patient is on vancomycin and Rocephin now. Patient has anxiety possibly due to IV drug withdrawal, please Valium 10 mg every 6 hours by mouth. - Constitutional Vitals: Temp Pulse Resp BP Pulse Ox 97.9 F 73 15 106/54 98 10/12/16 15:16 10/12/16 15:16 10/12/16 15:16 10/12/16 15:16 10/12/16 15:16 General appearance: Present: A&O X 3, answers questions appropriately - Head Head exam: Present: atraumatic, normocephalic - Eye Eye exam: Present: PERRL, conjuntiva pink, sclera anicteric Pupils: Present: PERRL - Neck Neck exam general surgery: Present: supple, trachea midline. Absent: lymphadenopathy - Respiratory Respiratory exam: Present: CTAB. Absent: accessory muscle use, rales, rhonchi, wheezes - Cardiovascular Cardiovascular exam: Present: RRR, +S1, +S2. Absent: diastolic murmur, gallop, rubs, systolic murmur - GI/Abdominal GI/Abdominal exam: Present: normal bowel sounds, soft, no peritoneal signs. Absent: distended, tenderness - Extremities Exam Extremities exam: Present: warm, radial pulses palpable and symetrical. Absent : calf tenderness, cyanotic, pedal edema - Neurological Exam Neurological exam: Present: CN II-XII intact, oriented X3, no focal deficits. Absent: pronater drift, facial droop, speech deficit - Skin Skin exam: Present: dry, intact Internal Medicine: Result - Labs CBC & Chem 7: 10/12/16 04:46 10/12/16 04:46 Labs: Short CBC 10/12/16 Range/Units 04:46 WBC 7.5 (4.3-11.1) K/mcL Hgb 14.0 (12.9-16.9) g/dL Hct 40.3 (37.5-50.1) % Plt Count 212 (140-400) K/mcL Neutrophils # 3.9 (1.6-8.9) K/mcL BMP 10/12/16 04:46 Sodium 140 Potassium 3.5 Chloride 109 Carbon Dioxide 23 BUN 9 Creatinine 0.85 Glucose 91 Calcium 8.5 L Consult Discharge Plan - Plan Referrals: Selene Clayton MD [Primary Care Provider] - 10/18/16 2:00 pm Mandi Faustin DO [Partnered Physician] - 10/13/16 9:20 am
[2016-10-13] MEDS: *HR* LORazepam 2 MG/ML VIAL IVP PRN ×3 (00:10→22:20)
[2016-10-13] MEDS: diazePAM 10 MG TABLET PO SCH ×4 (01:20→20:28)
[2016-10-13] MEDS: Vancomycin 1,750 MG in D5% in Water 500 ML IVPB SCH ×2 (03:14→14:51)
[2016-10-13] MEDS: *HR* Enoxaparin 40 MG/0.4 ML SYRINGE SQ SCH (06:20)
[2016-10-13] MEDS: Famotidine 20 MG TABLET PO SCH ×2 (09:19→20:28)
[2016-10-13] MEDS: Aspirin 81 MG TAB.CHEW PO SCH (09:19)
--- NOTE | 2016-10-13 11:49 | Infectious Disease Progress No ---
Date of Encounter: 10/13/16 Time of Encounter: 11:47 - Assessment and Plan (1) Sepsis Current Visit: Yes Status: Acute The patient had three SIRS criteria on admission. Lactic acid normal on admission. Received IV fluid resuscitation in the ED. Does not require vasopressors. Secondary to bacteremia vs. infective endocarditis. Improved. Tachycardia and bandemia have resolved. He continues to have intermittent hypotension. Blood cultures obtained 10/07/16 are positive 1/2 sets for Baccilus cereus. Awaiting sensitivities. Should have later today or tomorrow. Repeat blood cultures drawn 10/09/16 are NGTD. Qualifiers: Sepsis type: sepsis due to unspecified organism Qualified Code(s): A41.9 - Sepsis, unspecified organism (2) Bacteremia Current Visit: Yes Status: Acute Causative organism Bacillus cereus. Blood cultures drawn 10/07/16 are positive 1/2 sets for Bacillus cereus. Sensitivities are pending. Repeat blood cultures drawn 10/09/[address] chest negative for septic emboli. MRI of the brain negative for septic emboli. The patient has one major and one minor Burton's Criteria. Started on empiric IV antibiotics - Vanc and Rocephin. It is possible that this is a contaminant; however, given the patient's history of IVDU, recent illness, and possible vegetation on STE[place], we will need to go ahead and treat as true infection. Continue Vancomycin IV for now (day 7). Pharmacy to dose. Goal trough approximately 15. Discontinue Rocephin. Monitor renal function and for drug toxicity and dose-adjust antibiotics. Duration of treatment depends on the clinical picture, but likely 6 weeks of IV antibiotics. (3) Endocarditis Current Visit: Yes Status: Acute Causative organism Bacillus cereus. Echodensity noted during STEPHANY, but could not get patient adequately sedated to get a good look.. Repeat blood cultures drawn 10/09/16 are NGTD. No endocarditis stigmata noted on exam. The patient meets one major and one minor Burton's criteria making this possible IE. Rheumatoid factor negative. Coxiella burnettii antibody pending. Continue antibiotics as above for now. Duration of treatment depends on the clinical picture, but likely 6 weeks of IV antibiotics. I discussed the potential diagnosis and plan of care with the patient at length, including the possible need for long-term IV antibiotics which would require that he be placed in an ECF for the duration of his antibiotic treatment. Given his recent history of signing out AMA, I am not sure that he will remain compliant with this and I don't think starting long- term antibiotics are in his best interest if he does not commit to completing the entire duration of treatment as this places him at high risk for developing resistant bacterial infections. We discussed the risks, benefits, and alternatives to treatment. He states he would like to proceed with long-term IV antibiotics. I again confirmed with him that he agrees to be compliant with the entire 6 week course of treatment and he agrees. office services coordinator has been consulted and is following and is working on placement. Will need weekly CBC and BMP. Will need to get PICC line placed. Will need weekly PICC care. Will need to follow up with ID 2 weeks after discharge. Will need repeat STEPHANY once antibiotic therapy is completed. Patient should follow up with cardiology after discharge to establish care in preparation for repeat STEPHANY post-treatment. Qualifiers: Endocarditis type: infective Infective endocarditis organism: unspecified organism Chronicity: acute Qualified Code(s): I33.0 - Acute and subacute infective endocarditis (4) PFO (patent foramen ovale) Current Visit: Yes Status: Acute Patient declined surgery. (5) Acute encephalopathy Current Visit: Yes Status: Resolved (6) CVA (cerebral vascular accident) Current Visit: Yes Status: Chronic Possibly secondary to PFO. MRI shows findings consistent with hypoxic/anoxic brain injury, but no new emboli. Qualifiers: CVA mechanism: embolism Precerebral and cerebral artery: unspecified cerebral artery Qualified Code(s): I63.40 - Cerebral infarction due to embolism of unspecified cerebral artery (7) IV drug user Current Visit: Yes Status: Chronic Check HIV nonreactive. Hep C positive. Follow up with GI as an outpatient. Hep Bc Ab in the chen zone. Patient reports he started Hep B vaccination series , but did not complete. Should re-test in 1 week. Last used IV heroin 1 week ago. Has a previous history of snorting cocaine as well. - Subjective Interval history: Patient seen and examined. No acute events noted overnight. Patient resting quietly in bed with eyes closed, but awakens easily. Denies fevers or chills. Denies chest pain, shortness of breath, or cough. Denies nausea, vomiting, or diarrhea. Denies abdominal pain or urinary complaints. Denies joint or back pain at this time. Denies oral thrush or new skin lesions. Infect Dis PN-Objective Data - Labs CBC & Chem 7: 10/12/16 04:46 10/12/16 04:46 Labs: Laboratory Results - last 24 hr 10/12/16 10/12/16 04:46 13:04 Vancomycin Trough 11.4 Hepatitis A IgM Ab Nonreactive Hep Bs Antigen Nonreactive Hep B Core IgM Ab Grayzone H Hepatitis C Ab Screen Reactive H HIV Ag/Ab Combo Qual Nonreactive Cultures: Cultures 10/09/16 10:42 Blood Culture - Preliminary Peripheral Venipuncture No growth. 10/09/16 10:42 Blood Culture - Preliminary Peripheral Venipuncture No growth. Serology 10/12/16 10/07/16 Range/Units 04:46 15:10 Urine Color Yellow (Yellow) Urine Clarity Clear (Clear) Urine pH 7.0 (5.0-8.0) pH Units Ur Specific [place] 1.021 (1.010-1.025) Urine Protein Negative (Neg-Trace) mg/dL Urine Glucose (UA) Normal (Normal) mg/dL Urine Ketones Negative (Negative) mg/dL Urine Blood Negative (Negative) Urine Nitrite Negative (Negative) Urine Bilirubin Negative (Negative) Urine Urobilinogen Normal (Normal) mg/dL Ur Leukocyte Esterase Negative (Negative) Ur Culture Indicated? NO (NO) Hepatitis A IgM Ab Nonreactive (Nonreactive) Hep Bs Antigen Nonreactive (Nonreactive) Hep B Core IgM Ab Grayzone H (Nonreactive) Hepatitis C Ab Screen Reactive H (Nonreactive) HIV Ag/Ab Combo Qual Nonreactive (Nonreactive) Exam - Constitutional Vitals: Temp Pulse Resp BP Pulse Ox 98.5 F 55 18 91/48 97 10/13/16 07:00 10/13/16 07:00 10/13/16 07:00 10/13/16 07:00 10/13/16 07:00 General appearance: average body habitus, cooperative, no acute distress - Head Head exam: Present: atraumatic, normal inspection, normocephalic - Eye Eye exam: Present: EOMI, normal appearance, PERRL Pupils: Present: normal accommodation Additional comments: No subconjunctival hemorrhage noted. - ENT ENT exam: Present: mucous membranes moist - Neck Neck exam: Present: normal inspection - Respiratory Respiratory exam: Present: CTAB. Absent: rales, respiratory distress, rhonchi, wheezes - Cardiovascular Cardiovascular exam: Present: RRR, +S1, +S2 - GI/Abdominal GI/Abdominal exam: Present: normal bowel sounds, soft. Absent: distended, tenderness - Extremities Exam Extremities exam: Present: normal inspection. Absent: joint swelling, pedal edema, tenderness Additional comments: No endocarditis stigmata noted. - Back Exam Back exam: Present: normal inspection. Absent: paraspinal tenderness, vertebral tenderness - Neurological Exam Neurological exam: Present: alert, oriented X3. Absent: no focal deficits - Psychiatric Psychiatric exam: Present: normal affect, normal mood - Skin Skin exam: Present: dry, intact, normal color, warm Consult Discharge Plan - Plan Referrals: Selene Clayton MD [Primary Care Provider] - 10/18/16 2:00 pm Mandi Faustin DO [Partnered Physician] - 10/13/16 9:20 am
--- NOTE | 2016-10-13 15:42 | Internal Med Progress Note ---
Date of Encounter: 10/13/16 Time of Encounter: 10:00 - Assessment and plan (1) Bandemia Current Visit: Yes Status: Acute Assessment and plan: Improved now. No source of infection identified. One out of 2 initial blood cultures grew gram-positive rods, repeat blood cultures negative. Continue vancomycin, D/C Rocephin. Patient is at high risk because of his vancomycin, need close monitoring (2) Bacteremia Current Visit: Yes Status: Acute Assessment and plan: Patient has a history of IV drug use. Contamination versus true bacteremia. ID and the cardio consult appreciated. On antibiotics right now, will follow up final culture results. (3) Endocarditis Current Visit: Yes Status: Acute Assessment and plan: STEPHANY shows a questionable vegetation. Patient possibly needs a long-term antibiotic. Patient is noncompliant with history of AMA previously. ID recommend patient has IV antibiotic in the ECF facility. Discussed with the patient, he agrees to be discharged to ECF. SW is working on placement, difficult placement because pt's hx of IVDU Qualifiers: Endocarditis type: infective Infective endocarditis organism: unspecified organism Chronicity: acute Qualified Code(s): I33.0 - Acute and subacute infective endocarditis (4) PFO (patent foramen ovale) Current Visit: Yes Status: Acute Assessment and plan: Patient has declined surgery previously. May need to follow up with cardiology as outpatient (5) Sepsis Current Visit: Yes Status: Acute Assessment and plan: We will continue antibiotic. Continue IV fluid. Lactate acid level is not high. 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 Continue aspirin, changed to 81 mg daily. lipid profile noted to be within normal limits. Physical therapy screen and occupational therapy recommends no further treatment. Supportive care. Qualifiers: CVA mechanism: embolism Precerebral and cerebral artery: unspecified cerebral artery Qualified Code(s): I63.40 - Cerebral infarction due to embolism of unspecified cerebral artery (7) Hepatitis C Current Visit: Yes Status: Chronic Assessment and plan: Treatment naive. Needs outpatient follow-up. Qualifiers: Viral hepatitis chronicity: chronic Hepatic coma status: without hepatic coma Qualified Code(s): B18.2 - Chronic viral hepatitis C (8) IV drug user Current Visit: Yes Status: Chronic Assessment and plan: Active polysubstance abuse along with IV heroine use. IV hydration and supportive care. donor services specialist consult for safe discharge and rehabilitation resources. (9) Acute encephalopathy Current Visit: Yes Status: Resolved Assessment and plan: Could be related to substance abuse, recent stroke, possibility of underlying infection/sepsis. Encephalopathy is currently improved and patient is back to baseline mental status. (10) DVT prophylaxis Current Visit: Yes Status: Acute Assessment and plan: Lovenox subcutaneously - Time Spent With Patient Greater than 35 minutes - Subjective Interval history: Patient is a 31-year-old male admitted for confusion. His past medical history is significant for IV drug use, CVA. Patient was found positive blood culture. Cardiology and ID consult appreciated. I have seen and examined the patient. He denies chest pain or shortness of breath. No fever. Vitals are stable. Repeat blood culture negative 2. However, STEPHANY shows questionable vegetations. ID consult appreciated. Plan is to discharge pt to ECF for halfway IV abx, likely 6 wks. SW is working for placement. - Constitutional Vitals: Temp Pulse Resp BP Pulse Ox 98.5 F 55 18 91/48 97 10/13/16 07:00 10/13/16 07:00 10/13/16 07:00 10/13/16 07:00 10/13/16 07:00 General appearance: Present: A&O X 3, answers questions appropriately - Head Head exam: Present: atraumatic, normocephalic - Eye Eye exam: Present: PERRL, conjuntiva pink, sclera anicteric Pupils: Present: PERRL - Neck Neck exam general surgery: Present: supple, trachea midline. Absent: lymphadenopathy - Respiratory Respiratory exam: Present: CTAB. Absent: accessory muscle use, rales, rhonchi, wheezes - Cardiovascular Cardiovascular exam: Present: RRR, +S1, +S2. Absent: diastolic murmur, gallop, rubs, systolic murmur - GI/Abdominal GI/Abdominal exam: Present: normal bowel sounds, soft, no peritoneal signs. Absent: distended, tenderness - Extremities Exam Extremities exam: Present: warm, radial pulses palpable and symetrical. Absent : calf tenderness, cyanotic, pedal edema - Neurological Exam Neurological exam: Present: CN II-XII intact, oriented X3, no focal deficits. Absent: pronater drift, facial droop, speech deficit - Skin Skin exam: Present: dry, intact Internal Medicine: Result - Labs CBC & Chem 7: 10/12/16 04:46 10/12/16 04:46 Consult Discharge Plan - Plan Referrals: Selene Clayton MD [Primary Care Provider] - 10/18/16 2:00 pm Mandi Faustin DO [Partnered Physician] - 10/13/16 9:20 am
[2016-10-14] MEDS: Vancomycin 1,750 MG in D5% in Water 500 ML IVPB SCH (02:32)
[2016-10-14] MEDS: diazePAM 10 MG TABLET PO SCH ×4 (02:33→19:52)
[2016-10-14] MEDS: *HR* Enoxaparin 40 MG/0.4 ML SYRINGE SQ SCH (06:53)
[2016-10-14] MEDS: Aspirin 81 MG TAB.CHEW PO SCH (08:58)
[2016-10-14] MEDS: Famotidine 20 MG TABLET PO SCH ×2 (08:58→19:52)
[2016-10-14] MEDS ORDERED: Lidocaine -MPF 1% 5 ML AMPUL INFILT ONE (09:10)
[2016-10-14] MEDS: *HR* LORazepam 2 MG/ML VIAL IVP PRN ×3 (10:43→22:28)
--- NOTE | 2016-10-14 11:04 | Infectious Disease Progress No ---
Date of Encounter: 10/14/16 Time of Encounter: 11:01 - Assessment and Plan (1) Sepsis Current Visit: Yes Status: Acute The patient had three SIRS criteria on admission. Lactic acid normal on admission. Received IV fluid resuscitation in the ED. Does not require vasopressors. Secondary to bacteremia vs. infective endocarditis. Improved. Tachycardia and bandemia have resolved. He continues to have intermittent hypotension. Blood cultures obtained 10/07/16 are positive 1/2 sets for Baccilus cereus, sensitive to Vanc. Repeat blood cultures drawn 10/09/16 are NGTD. Qualifiers: Sepsis type: sepsis due to unspecified organism Qualified Code(s): A41.9 - Sepsis, unspecified organism (2) Bacteremia Current Visit: Yes Status: Acute Causative organism Bacillus cereus. Blood cultures drawn 10/07/16 are positive 1/2 sets for Bacillus cereus, vanc sensitive. Repeat blood cultures drawn 10/09/[address] chest negative for septic emboli. MRI of the brain negative for septic emboli. The patient has one major and one minor Burton's Criteria. It is possible that this is a contaminant; however, given the patient's history of IVDU, recent illness, and possible vegetation on [place], we will need to go ahead and treat as true infection. Continue Vancomycin IV for now (day 8). Pharmacy to dose. Goal trough approximately 15. Monitor renal function and for drug toxicity and dose-adjust antibiotics. Duration of treatment depends on the clinical picture, but likely 6 weeks of IV antibiotics. Weekly CBC, BMP, and Vanc trough. Weekly PICC care. Follow up with ID 10/31/16 at 0930. (3) Endocarditis Current Visit: Yes Status: Acute Causative organism Bacillus cereus. Echodensity noted during STEPHANY, but could not get patient adequately sedated to get a good look.. Repeat blood cultures drawn 10/09/16 are NGTD. No endocarditis stigmata noted on exam. The patient meets one major and one minor Burton's criteria making this possible IE. Rheumatoid factor negative. Coxiella burnettii antibody negative. Continue antibiotics as above for now. Duration of treatment depends on the clinical picture, but likely 6 weeks of IV antibiotics. I discussed the potential diagnosis and plan of care with the patient at length, including the possible need for long-term IV antibiotics which would require that he be placed in an ECF for the duration of his antibiotic treatment. Given his recent history of signing out AMA, I am not sure that he will remain compliant with this and I don't think starting long- term antibiotics are in his best interest if he does not commit to completing the entire duration of treatment as this places him at high risk for developing resistant bacterial infections. We discussed the risks, benefits, and alternatives to treatment. He states he would like to proceed with long-term IV antibiotics. I again confirmed with him that he agrees to be compliant with the entire 6 week course of treatment and he agrees. food services coordinator has been consulted and is following and is working on placement. Will need weekly CBC and BMP. Will need weekly PICC care. Will need to follow up with ID 2 weeks after discharge. Will need repeat STEPHANY once antibiotic therapy is completed. Patient should follow up with cardiology after discharge to establish care in preparation for repeat STEPHANY post-treatment. Qualifiers: Endocarditis type: infective Infective endocarditis organism: unspecified organism Chronicity: acute Qualified Code(s): I33.0 - Acute and subacute infective endocarditis (4) PFO (patent foramen ovale) Current Visit: Yes Status: Acute Patient declined surgery previously, but is now requesting surgery to have this fixed. Will likely need referral to [facility] once endocarditis treatment is complete. (5) Acute encephalopathy Current Visit: Yes Status: Resolved (6) CVA (cerebral vascular accident) Current Visit: Yes Status: Chronic Possibly secondary to PFO. MRI shows findings consistent with hypoxic/anoxic brain injury, but no new emboli. Qualifiers: CVA mechanism: embolism Precerebral and cerebral artery: unspecified cerebral artery Qualified Code(s): I63.40 - Cerebral infarction due to embolism of unspecified cerebral artery (7) IV drug user Current Visit: Yes Status: Chronic Check HIV nonreactive. Hep C positive. Follow up with GI as an outpatient. Hep Bc Ab in the [place]hen zone. Patient reports he started Hep B vaccination series , but did not complete. Should re-test in 1 week. Last used IV heroin 1 week ago. Has a previous history of snorting cocaine as well. - Subjective Interval history: Patient seen and examined. No acute events noted overnight. Patient resting quietly in bed. Denies fevers or chills. Denies chest pain, shortness of breath , or cough. Denies nausea, vomiting, or diarrhea. Denies abdominal pain or urinary complaints. Denies joint or back pain at this time. Denies oral thrush or new skin lesions. Infect Dis PN-Objective Data - Labs CBC & Chem 7: 10/12/16 04:46 10/12/16 04:46 Labs: Laboratory Results - last 24 hr 10/14/16 01:16 Vancomycin Trough 13.9 Cultures: Cultures 10/09/16 10:42 Blood Culture - Preliminary Peripheral Venipuncture No growth. 10/09/16 10:42 Blood Culture - Preliminary Peripheral Venipuncture No growth. Serology 10/12/16 10/07/16 Range/Units 04:46 15:10 Urine Color Yellow (Yellow) Urine Clarity Clear (Clear) Urine pH 7.0 (5.0-8.0) pH Units Ur Specific [place] 1.021 (1.010-1.025) Urine Protein Negative (Neg-Trace) mg/dL Urine Glucose (UA) Normal (Normal) mg/dL Urine Ketones Negative (Negative) mg/dL Urine Blood Negative (Negative) Urine Nitrite Negative (Negative) Urine Bilirubin Negative (Negative) Urine Urobilinogen Normal (Normal) mg/dL Ur Leukocyte Esterase Negative (Negative) Ur Culture Indicated? NO (NO) Hepatitis A IgM Ab Nonreactive (Nonreactive) Hep Bs Antigen Nonreactive (Nonreactive) Hep B Core IgM Ab [place] H (Nonreactive) Hepatitis C Ab Screen Reactive H (Nonreactive) HIV Ag/Ab Combo Qual Nonreactive (Nonreactive) Exam - Constitutional Vitals: Temp Pulse Resp BP Pulse Ox 97.8 F 70 16 94/59 97 10/14/16 07:59 10/14/16 07:59 10/14/16 07:59 10/14/16 09:17 10/14/16 07:59 General appearance: average body habitus, cooperative, no acute distress - Head Head exam: Present: atraumatic, normal inspection, normocephalic - Eye Eye exam: Present: EOMI, normal appearance, PERRL Pupils: Present: normal accommodation Additional comments: No subconjunctival hemorrhage noted. - ENT ENT exam: Present: mucous membranes moist - Neck Neck exam: Present: normal inspection - Respiratory Respiratory exam: Present: CTAB. Absent: rales, respiratory distress, rhonchi, wheezes - Cardiovascular Cardiovascular exam: Present: RRR, +S1, +S2 - GI/Abdominal GI/Abdominal exam: Present: normal bowel sounds, soft. Absent: distended, tenderness - Extremities Exam Extremities exam: Present: normal inspection. Absent: joint swelling, pedal edema, tenderness Additional comments: No endocarditis stigmata noted. PICC line noted to the RUE with transparent dressing C/D/I. - Back Exam Back exam: Present: normal inspection. Absent: paraspinal tenderness, vertebral tenderness - Neurological Exam Neurological exam: Present: alert, oriented X3, no focal deficits - Psychiatric Psychiatric exam: Present: normal affect, normal mood - Skin Skin exam: Present: dry, intact, normal color, warm Consult Discharge Plan - Plan Referrals: Selene Clayton MD [Primary Care Provider] - 10/18/16 2:00 pm Mandi Faustin DO [Partnered Physician] - 10/13/16 9:20 am Lainey Alvarado CNP [Advanced Practice Nurse] - 10/31/16 9:30 am
--- NOTE | 2016-10-14 16:30 | Internal Med Progress Note ---
Date of Encounter: 10/14/16 Time of Encounter: 10:00 - Assessment and plan (1) Bandemia Current Visit: Yes Status: Acute Assessment and plan: Improved now. No source of infection identified. One out of 2 initial blood cultures grew gram-positive rods, repeat blood cultures negative. Continue vancomycin, D/C Rocephin. Patient is at high risk because of his vancomycin, need close monitoring (2) Bacteremia Current Visit: Yes Status: Acute Assessment and plan: Patient has a history of IV drug use. Contamination versus true bacteremia. ID and the cardio consult appreciated. On antibiotics right now, will follow up final culture results. (3) Endocarditis Current Visit: Yes Status: Acute Assessment and plan: STEPHANY shows a questionable vegetation. Patient possibly needs a long-term antibiotic. Patient is noncompliant with history of AMA previously. ID recommend patient has IV antibiotic in the ECF facility. Discussed with the patient, he agrees to be discharged to ECF. SW is working on placement, difficult placement because pt's hx of IVDU. Patient has a PICC line placed today Qualifiers: Endocarditis type: infective Infective endocarditis organism: unspecified organism Chronicity: acute Qualified Code(s): I33.0 - Acute and subacute infective endocarditis (4) PFO (patent foramen ovale) Current Visit: Yes Status: Acute Assessment and plan: Patient has declined surgery previously. May need to follow up with cardiology as outpatient (5) Sepsis Current Visit: Yes Status: Acute Assessment and plan: We will continue antibiotic. Continue IV fluid. Lactate acid level is not high. 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 Continue aspirin, changed to 81 mg daily. lipid profile noted to be within normal limits. Physical therapy screen and occupational therapy recommends no further treatment. Supportive care. Qualifiers: CVA mechanism: embolism Precerebral and cerebral artery: unspecified cerebral artery Qualified Code(s): I63.40 - Cerebral infarction due to embolism of unspecified cerebral artery (7) Hepatitis C Current Visit: Yes Status: Chronic Assessment and plan: Treatment naive. Needs outpatient follow-up. Qualifiers: Viral hepatitis chronicity: chronic Hepatic coma status: without hepatic coma Qualified Code(s): B18.2 - Chronic viral hepatitis C (8) IV drug user Current Visit: Yes Status: Chronic Assessment and plan: Active polysubstance abuse along with IV heroine use. IV hydration and supportive care. patient services rep consult for safe discharge and rehabilitation resources. (9) Acute encephalopathy Current Visit: Yes Status: Resolved Assessment and plan: Could be related to substance abuse, recent stroke, possibility of underlying infection/sepsis. Encephalopathy is currently improved and patient is back to baseline mental status. (10) DVT prophylaxis Current Visit: Yes Status: Acute Assessment and plan: Lovenox subcutaneously - Time Spent With Patient Greater than 35 minutes - Subjective Interval history: Patient is a 31-year-old male admitted for confusion. His past medical history is significant for IV drug use, CVA. Patient was found positive blood culture. Cardiology and ID consult appreciated. I have seen and examined the patient. He denies chest pain or shortness of breath. No fever. Vitals are stable. Repeat blood culture negative 2. However, STEPHANY shows questionable vegetations. ID consult appreciated. 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 SW is working for placement. Patient had a PICC line placed today. - Constitutional Vitals: Temp Pulse Resp BP Pulse Ox 97.6 F 68 16 107/63 97 10/14/16 15:37 10/14/16 15:37 10/14/16 15:37 10/14/16 15:37 10/14/16 15:37 General appearance: Present: A&O X 3, answers questions appropriately - Head Head exam: Present: atraumatic, normocephalic - Eye Eye exam: Present: PERRL, conjuntiva pink, sclera anicteric Pupils: Present: PERRL - Neck Neck exam general surgery: Present: supple, trachea midline. Absent: lymphadenopathy - Respiratory Respiratory exam: Present: CTAB. Absent: accessory muscle use, rales, rhonchi, wheezes - Cardiovascular Cardiovascular exam: Present: RRR, +S1, +S2. Absent: diastolic murmur, gallop, rubs, systolic murmur - GI/Abdominal GI/Abdominal exam: Present: normal bowel sounds, soft, no peritoneal signs. Absent: distended, tenderness - Extremities Exam Extremities exam: Present: warm, radial pulses palpable and symetrical. Absent : calf tenderness, cyanotic, pedal edema - Neurological Exam Neurological exam: Present: CN II-XII intact, oriented X3, no focal deficits. Absent: pronater drift, facial droop, speech deficit - Skin Skin exam: Present: dry, intact Internal Medicine: Result - Labs CBC & Chem 7: 10/12/16 04:46 10/12/16 04:46 Consult Discharge Plan - Plan Referrals: Selene Clayton MD [Primary Care Provider] - 10/18/16 2:00 pm Lainey Alvarado CNP [Advanced Practice Nurse] - 10/31/16 9:30 am Mandi Faustin DO [Partnered Physician] - 10/13/16 9:20 am
[2016-10-14] MEDS: Vancomycin 2,000 MG in D5% in Water 500 ML IVPB SCH (16:39)
[2016-10-15] MEDS: diazePAM 10 MG TABLET PO SCH ×4 (00:35→19:59)
[2016-10-15] MEDS: Vancomycin 2,000 MG in D5% in Water 500 ML IVPB SCH ×2 (03:58→16:07)
[2016-10-15 04:27] LABS: Basophils % 0.6 %; Eosinophils # 0.1 K/mcL (0.0-0.6); Eosinophils % 1.7 %; Hematocrit 38.7 % (37.5-50.1); Hemoglobin 13.2 g/dL (12.9-16.9); Immature Granulocytes % 1.3 % (0-4); Lymphocytes # 3.2 K/mcL (0.6-4.6); Lymphocytes % 44.8 %; Mean Corpuscular HGB Conc 34.1 g/dL (31.6-35.5); Mean Corpuscular Hemoglobin 30.8 pg (28.0-33.3); Mean Corpuscular Volume 90.2 fL (83.0-100.0); Mean Platelet Volume 9.3 fL (9.4-12.4); Monocytes # 0.9 K/mcL (0.0-1.3); Neutrophils # 2.7 K/mcL (1.6-8.9); Platelet Count 224 K/mcL (140-400); Red Blood Count 4.29 M/mcL (4.19-5.50); Red Cell Distribution Width 13.2 % (11.5-14.5); Segmented Neutrophils % 38.6 %
[2016-10-15] MEDS: *HR* LORazepam 2 MG/ML VIAL IVP PRN ×3 (04:38→18:24)
[2016-10-15 04:49] LABS: BUN/Creatinine Ratio 20 (6-26); Blood Urea Nitrogen 18 mg/dL (8-26); Carbon Dioxide 25 mEq/L (19-29); Chloride 106 mEq/L (98-109); Glucose 93 mg/dL (70-99); Osmolality,Calculated 284 (280-300); Potassium 3.9 mEq/L (3.5-4.5); Sodium 136 mEq/L (136-145); eGFR For African Americans > 60 (> 60); eGFR For Non-African Americans > 60 (> 60)
[2016-10-15] MEDS: *HR* Enoxaparin 40 MG/0.4 ML SYRINGE SQ SCH (05:38)
[2016-10-15] MEDS: Aspirin 81 MG TAB.CHEW PO SCH (09:00)
[2016-10-15] MEDS: Famotidine 20 MG TABLET PO SCH ×2 (09:00→19:59)
--- NOTE | 2016-10-15 15:31 | Internal Med Progress Note ---
Date of Encounter: 10/15/16 Time of Encounter: 10:00 - Assessment and plan (1) Bandemia Current Visit: Yes Status: Acute Assessment and plan: Improved now. No source of infection identified. One out of 2 initial blood cultures grew gram-positive rods, repeat blood cultures negative. Continue vancomycin, D/C Rocephin. Patient is at high risk because of his vancomycin, need close monitoring (2) Bacteremia Current Visit: Yes Status: Acute Assessment and plan: Patient has a history of IV drug use. Contamination versus true bacteremia. ID and the cardio consult appreciated. Final culture results shows bacillus cereus, sensitive to Vanco, which pt is on. (3) Endocarditis Current Visit: Yes Status: Acute Assessment and plan: STEPHANY shows a questionable vegetation. Patient possibly needs a long-term antibiotic. Patient is noncompliant with history of AMA previously. ID recommend patient has IV antibiotic in the ECF facility. Discussed with the patient, he agrees to be discharged to ECF. SW is working on placement, difficult placement because pt's hx of IVDU. Patient has a PICC line placed Qualifiers: Endocarditis type: infective Infective endocarditis organism: unspecified organism Chronicity: acute Qualified Code(s): I33.0 - Acute and subacute infective endocarditis (4) PFO (patent foramen ovale) Current Visit: Yes Status: Acute Assessment and plan: Patient has declined surgery previously. May need to follow up with cardiology as outpatient (5) Sepsis Current Visit: Yes Status: Acute Assessment and plan: We will continue antibiotic. Lactate acid level is not high. 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 Continue aspirin, changed to 81 mg daily. lipid profile noted to be within normal limits. Physical therapy screen and occupational therapy recommends no further treatment. Supportive care. Qualifiers: CVA mechanism: embolism Precerebral and cerebral artery: unspecified cerebral artery Qualified Code(s): I63.40 - Cerebral infarction due to embolism of unspecified cerebral artery (7) Hepatitis C Current Visit: Yes Status: Chronic Assessment and plan: Treatment naive. Needs outpatient follow-up. Qualifiers: Viral hepatitis chronicity: chronic Hepatic coma status: without hepatic coma Qualified Code(s): B18.2 - Chronic viral hepatitis C (8) IV drug user Current Visit: Yes Status: Chronic Assessment and plan: Active polysubstance abuse along with IV heroine use. IV hydration and supportive care. surgical services director consult for safe discharge and rehabilitation resources. (9) Acute encephalopathy Current Visit: Yes Status: Resolved Assessment and plan: Could be related to substance abuse, recent stroke, possibility of underlying infection/sepsis. Encephalopathy is currently improved and patient is back to baseline mental status. (10) DVT prophylaxis Current Visit: Yes Status: Acute Assessment and plan: Lovenox subcutaneously - Time Spent With Patient Greater than 35 minutes - Subjective Interval history: Patient is a 31-year-old male admitted for confusion. His past medical history is significant for IV drug use, CVA. Patient was found positive blood culture. Cardiology and ID consult appreciated. I have seen and examined the patient. He denies chest pain or shortness of breath. No fever. Vitals are stable. Repeat blood culture negative 2. However, STEPHANY shows questionable vegetations. ID consult appreciated. 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 SW is working for placement. Patient had a PICC line placed. - Constitutional Vitals: Temp Pulse Resp BP Pulse Ox 97.6 F 60 15 100/58 98 10/15/16 07:41 10/15/16 07:41 10/15/16 07:41 10/15/16 07:41 10/15/16 07:41 General appearance: Present: A&O X 3, answers questions appropriately - Head Head exam: Present: atraumatic, normocephalic - Eye Eye exam: Present: PERRL, conjuntiva pink, sclera anicteric Pupils: Present: PERRL - Neck Neck exam general surgery: Present: supple, trachea midline. Absent: lymphadenopathy - Respiratory Respiratory exam: Present: CTAB. Absent: accessory muscle use, rales, rhonchi, wheezes - Cardiovascular Cardiovascular exam: Present: RRR, +S1, +S2. Absent: diastolic murmur, gallop, rubs, systolic murmur - GI/Abdominal GI/Abdominal exam: Present: normal bowel sounds, soft, no peritoneal signs. Absent: distended, tenderness - Extremities Exam Extremities exam: Present: warm, radial pulses palpable and symetrical. Absent : calf tenderness, cyanotic, pedal edema - Neurological Exam Neurological exam: Present: CN II-XII intact, oriented X3, no focal deficits. Absent: pronater drift, facial droop, speech deficit - Skin Skin exam: Present: dry, intact Internal Medicine: Result - Labs CBC & Chem 7: 10/15/16 04:00 10/15/16 04:00 Labs: Short CBC 10/15/16 Range/Units 04:00 WBC 7.1 (4.3-11.1) K/mcL Hgb 13.2 (12.9-16.9) g/dL Hct 38.7 (37.5-50.1) % Plt Count 224 (140-400) K/mcL Neutrophils # 2.7 (1.6-8.9) K/mcL BMP 10/15/16 04:00 Sodium 136 Potassium 3.9 Chloride 106 Carbon Dioxide 25 BUN 18 Creatinine 0.89 Glucose 93 Calcium 9.0 - Impressions Impressions Chest X-Ray 10/15/16 00:00 IMPRESSION: Appropriate positioning of right PICC line. No other significant findings in the chest. D/ / Christos Peters MD / Christos Peters MD Interpreting Provider: Christos Peters MD Consult Discharge Plan - Plan Referrals: Selene Clayton MD [Primary Care Provider] - 10/18/16 2:00 pm Lainey Alvarado CNP [Advanced Practice Nurse] - 10/31/16 9:30 am Mandi Faustin DO [Partnered Physician] - 10/13/16 9:20 am
[2016-10-16] MEDS: *HR* LORazepam 2 MG/ML VIAL IVP PRN ×4 (00:24→22:45)
[2016-10-16] MEDS: diazePAM 10 MG TABLET PO SCH ×4 (01:00→18:49)
[2016-10-16] MEDS: Vancomycin 2,000 MG in D5% in Water 500 ML IVPB SCH ×2 (03:26→16:33)
[2016-10-16] MEDS: *HR* Enoxaparin 40 MG/0.4 ML SYRINGE SQ SCH (05:34)
[2016-10-16] MEDS: Famotidine 20 MG TABLET PO SCH ×2 (09:04→20:05)
[2016-10-16] MEDS: Aspirin 81 MG TAB.CHEW PO SCH (09:04)
--- NOTE | 2016-10-16 11:49 | Internal Med Progress Note ---
Date of Encounter: 10/16/16 Time of Encounter: 10:00 - Assessment and plan (1) Bandemia Current Visit: Yes Status: Acute Assessment and plan: Improved now. No source of infection identified. One out of 2 initial blood cultures grew gram-positive rods, repeat blood cultures negative. Continue vancomycin, D/C Rocephin. Patient is at high risk because of his vancomycin, need close monitoring (2) Bacteremia Current Visit: Yes Status: Acute Assessment and plan: Patient has a history of IV drug use. ID and the cardio consult appreciated. Final culture results shows bacillus cereus, sensitive to Vanco, which pt is on. Plan is to continue Vanco for total of 6 weeks. (3) Endocarditis Current Visit: Yes Status: Acute Assessment and plan: STEPHANY shows a questionable vegetation. Patient possibly needs a long-term antibiotic. Patient is noncompliant with history of AMA previously. ID recommend patient has IV antibiotic in the ECF facility. Discussed with the patient, he agrees to be discharged to ECF. SW is working on placement, difficult placement because pt's hx of IVDU. Patient has a PICC line placed Qualifiers: Endocarditis type: infective Infective endocarditis organism: unspecified organism Chronicity: acute Qualified Code(s): I33.0 - Acute and subacute infective endocarditis (4) PFO (patent foramen ovale) Current Visit: Yes Status: Acute Assessment and plan: Patient has declined surgery previously. May need to follow up with cardiology as outpatient (5) Sepsis Current Visit: Yes Status: Acute Assessment and plan: Resolved. We will continue antibiotic. Lactate acid level is not high. 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 Continue aspirin, changed to 81 mg daily. lipid profile noted to be within normal limits. Physical therapy screen and occupational therapy recommends no further treatment. Supportive care. Qualifiers: CVA mechanism: embolism Precerebral and cerebral artery: unspecified cerebral artery Qualified Code(s): I63.40 - Cerebral infarction due to embolism of unspecified cerebral artery (7) Hepatitis C Current Visit: Yes Status: Chronic Assessment and plan: Treatment naive. Needs outpatient follow-up. I informed the patient that Hep C is treatable disease now. If leave untreated , it will develop cirrhosis and possibly liver cancer. Patient verbalizes understanding and agrees to follow up with GI as outpatient after discharge. Qualifiers: Viral hepatitis chronicity: chronic Hepatic coma status: without hepatic coma Qualified Code(s): B18.2 - Chronic viral hepatitis C (8) IV drug user Current Visit: Yes Status: Chronic Assessment and plan: Active polysubstance abuse along with IV heroine use. IV hydration and supportive care. guest services assistant consult for safe discharge and rehabilitation resources. (9) Acute encephalopathy Current Visit: Yes Status: Resolved Assessment and plan: Could be related to substance abuse, recent stroke, possibility of underlying infection/sepsis. Encephalopathy is currently improved and patient is back to baseline mental status. (10) DVT prophylaxis Current Visit: Yes Status: Acute Assessment and plan: Lovenox subcutaneously - Time Spent With Patient Greater than 35 minutes - Subjective Interval history: Patient is a 31-year-old male admitted for confusion. His past medical history is significant for IV drug use, CVA. Patient was found positive blood culture. Cardiology and ID consult appreciated. I have seen and examined the patient. He denies chest pain or shortness of breath. No fever. Vitals are stable. Repeat blood culture negative 2. However, STEPHANY shows questionable vegetations. ID consult appreciated. Plan is to discharge pt to ECF for senior care IV abx, likely 6 wks. SW is working for placement. Patient had a PICC line placed. - Constitutional Vitals: Temp Pulse Resp BP Pulse Ox 98.3 F 60 15 103/55 97 10/16/16 07:40 10/16/16 07:40 10/16/16 07:40 10/16/16 07:40 10/16/16 07:40 General appearance: Present: A&O X 3, answers questions appropriately - Head Head exam: Present: atraumatic, normocephalic - Eye Eye exam: Present: PERRL, conjuntiva pink, sclera anicteric Pupils: Present: PERRL - Neck Neck exam general surgery: Present: supple, trachea midline. Absent: lymphadenopathy - Respiratory Respiratory exam: Present: CTAB. Absent: accessory muscle use, rales, rhonchi, wheezes - Cardiovascular Cardiovascular exam: Present: RRR, +S1, +S2. Absent: diastolic murmur, gallop, rubs, systolic murmur - GI/Abdominal GI/Abdominal exam: Present: normal bowel sounds, soft, no peritoneal signs. Absent: distended, tenderness - Extremities Exam Extremities exam: Present: warm, radial pulses palpable and symetrical. Absent : calf tenderness, cyanotic, pedal edema - Neurological Exam Neurological exam: Present: CN II-XII intact, oriented X3, no focal deficits. Absent: pronater drift, facial droop, speech deficit - Skin Skin exam: Present: dry, intact Internal Medicine: Result - Labs CBC & Chem 7: 10/15/16 04:00 10/15/16 04:00 Consult Discharge Plan - Plan Referrals: Selene Clayton MD [Primary Care Provider] - 10/18/16 2:00 pm Lainey Alvarado CNP [Advanced Practice Nurse] - 10/31/16 9:30 am Mandi Faustin DO [Partnered Physician] - 10/13/16 9:20 am
--- NOTE | 2016-10-16 15:01 | Venous Imaging Report ---
UE Venous Duplex Patient Name:Javier Madrid Order Number:[id number] Procedure Date:10/15/2016 Date:1985Age:31 yrs Gender:Male Location:[facility] Room #: 2NE24 Mold Builder:Humaira Patterson RVT Referring MD:Ismael Dunn MD business quality assurance analyst:Selene Clayton MD Reading MD:Juvenal Smalls MD , FACS Secondary Indications: Risk Factors Yes/No Recent IV therapy ( past 2 weeks) Yes IV Drug Use Yes Impressions: Right upper extremity: normal deep exam. Upper extremity abnormal superficial exam: right Cephalic vein acute thrombosis. Left lower extremity: normal contralateral exam. Recommendations: Test completed on 10/15/2016 at 3:15:00 pm. Critical findings reported to Melyssa RODRIGUEZ in person at 3:15:00 pm on 10/15/2016 by Humaira Patterson RVT. Findings Venous Duplex Results: Right: Venous imaging of the upper extremity reveals full patency and normal vessel compressibility of the right jugular, right subclavian, right axillary, right brachial, right cephalic upper arm, right basilic, right radial and right ulnar. Doppler signals in the evaluated veins were normal. The right cephalic forearm demonstrates an incompressible vein. Flow was absent. Left: Venous imaging of the upper extremity reveals full patency and normal vessel compressibility of the left subclavian. Doppler signals in the evaluated veins were normal. Prior Study: No prior study available for comparison. Upper Extremity Venous Duplex Side Vein Compress Spontaneous Flow Augment Right Cephalic Forearm None no Absent Updated by Juvenal Smalls MD, FACS on 10/16/2016 2:57:33 PM Juvenal Smalls MD electronically signed on 10/16/2016 2:58:05 PM with status of Final
[2016-10-17] MEDS: diazePAM 10 MG TABLET PO SCH ×4 (00:23→19:48)
[2016-10-17] MEDS ORDERED: Melatonin 3 MG TABLET PO STA (01:06)
[2016-10-17] MEDS: Vancomycin 2,000 MG in D5% in Water 500 ML IVPB SCH ×2 (02:56→16:46)
[2016-10-17] MEDS: *HR* LORazepam 2 MG/ML VIAL IVP PRN ×3 (04:49→18:20)
[2016-10-17] MEDS: *HR* Enoxaparin 40 MG/0.4 ML SYRINGE SQ SCH (04:49)
[2016-10-17] MEDS: Nicotine 21 MG PATCH.TD24 TD SCH (08:26)
[2016-10-17] MEDS: Aspirin 81 MG TAB.CHEW PO SCH (08:26)
[2016-10-17] MEDS: Famotidine 20 MG TABLET PO SCH ×2 (08:26→19:48)
--- NOTE | 2016-10-17 10:19 | Infectious Disease Progress No ---
Date of Encounter: 10/17/16 Time of Encounter: 10:17 - Assessment and Plan (1) Sepsis Current Visit: Yes Status: Acute The patient had three SIRS criteria on admission. Lactic acid normal on admission. Received IV fluid resuscitation in the ED. Does not require vasopressors. Secondary to bacteremia vs. infective endocarditis. Improved. Tachycardia and bandemia have resolved. Hypotension appears to have resolved. Blood cultures obtained 10/07/16 are positive 1/2 sets for Baccilus cereus, sensitive to Vanc. Repeat blood cultures drawn 10/09/16 are negative. Qualifiers: Sepsis type: sepsis due to unspecified organism Qualified Code(s): A41.9 - Sepsis, unspecified organism (2) Bacteremia Current Visit: Yes Status: Acute Causative organism Bacillus cereus. Blood cultures drawn 10/07/16 are positive 1/2 sets for Bacillus cereus, vanc sensitive. Repeat blood cultures drawn 10/09/[address] chest negative for septic emboli. MRI of the brain negative for septic emboli. The patient has one major and one minor Burton's Criteria. It is possible that this is a contaminant; however, given the patient's history of IVDU, recent illness, and possible vegetation on STEPHANY, we will need to go ahead and treat as true infection. Continue Vancomycin IV for now (day 11). Pharmacy to dose. Goal trough approximately 15. Monitor renal function and for drug toxicity and dose-adjust antibiotics. Duration of treatment depends on the clinical picture, but likely 6 weeks of IV antibiotics. Treat through 11/20/16. Weekly CBC, BMP, and Vanc trough. Weekly PICC care. Follow up with ID 10/31/16 at 0930. (3) Endocarditis Current Visit: Yes Status: Acute Causative organism Bacillus cereus. Echodensity noted during STEPHANY, but could not get patient adequately sedated to get a good look.. Repeat blood cultures drawn 10/09/16 are negative. No endocarditis stigmata noted on exam. The patient meets one major and one minor Burton's criteria making this possible IE. Rheumatoid factor negative. Coxiella burnettii antibody negative. Continue antibiotics as above for now. Duration of treatment depends on the clinical picture, but likely 6 weeks of IV antibiotics. Patient remains agreeable to placement in an ECF for IV antibiotic therapy. food services coordinator has been consulted and is following and is working on placement. Will need weekly CBC and BMP. Will need weekly PICC care. Will need to follow up with ID 2 weeks after discharge. Will need repeat STEPHANY once antibiotic therapy is completed. Patient should follow up with cardiology after discharge to establish care in preparation for repeat STEPHANY post-treatment. Qualifiers: Endocarditis type: infective Infective endocarditis organism: unspecified organism Chronicity: acute Qualified Code(s): I33.0 - Acute and subacute infective endocarditis (4) PFO (patent foramen ovale) Current Visit: Yes Status: Acute Patient declined surgery previously, but is now requesting surgery to have this fixed. Will likely need referral to [facility] once endocarditis treatment is complete. (5) Acute encephalopathy Current Visit: Yes Status: Resolved (6) CVA (cerebral vascular accident) Current Visit: Yes Status: Chronic Possibly secondary to PFO. MRI shows findings consistent with hypoxic/anoxic brain injury, but no new emboli. Qualifiers: CVA mechanism: embolism Precerebral and cerebral artery: unspecified cerebral artery Qualified Code(s): I63.40 - Cerebral infarction due to embolism of unspecified cerebral artery (7) IV drug user Current Visit: Yes Status: Chronic Check HIV nonreactive. Hep C positive. Follow up with GI as an outpatient. Hep Bc Ab in the chen zone. Patient reports he started Hep B vaccination series , but did not complete. Should re-test in 1 week. Last used IV heroin 1 week ago. Has a previous history of snorting cocaine as well. - Subjective Interval history: Patient seen and examined. Weekend notes reviewed. No acute events noted. Still awaiting placement for IV antibiotics. Patient resting quietly in bed with eyes closed. Awakens easily. Denies fevers or chills. Denies chest pain, shortness of breath, or cough. Denies nausea, vomiting, or diarrhea. Denies abdominal pain or urinary complaints. Denies joint or back pain at this time. Denies oral thrush or new skin lesions. Infect Dis PN-Objective Data - Labs CBC & Chem 7: 10/15/16 04:00 10/15/16 04:00 Cultures: Cultures 10/09/16 10:42 Blood Culture - Final Peripheral Venipuncture No growth. 10/09/16 10:42 Blood Culture - Final Peripheral Venipuncture No growth. Serology 10/12/16 10/12/16 10/07/16 Range/Units 04:46 04:46 15:10 Urine Color Yellow (Yellow) Urine Clarity Clear (Clear) Urine pH 7.0 (5.0-8.0) pH Units Ur Specific Soldier 1.021 (1.010-1.025) Urine Protein Negative (Neg-Trace) mg/dL Urine Glucose (UA) Normal (Normal) mg/dL Urine Ketones Negative (Negative) mg/dL Urine Blood Negative (Negative) Urine Nitrite Negative (Negative) Urine Bilirubin Negative (Negative) Urine Urobilinogen Normal (Normal) mg/dL Ur Leukocyte Esterase Negative (Negative) Ur Culture Indicated? NO (NO) C.burnetii Phase I IgG NEGATIVE (Negative) C.burnetii Phase I IgM NEGATIVE (Negative) C.burnetii Phase II IgG NEGATIVE (Negative) C.burnetii Phase II IgM NEGATIVE (Negative) Hepatitis A IgM Ab Nonreactive (Nonreactive) Hep Bs Antigen Nonreactive (Nonreactive) Hep B Core IgM Ab [place] H (Nonreactive) Hepatitis C Ab Screen Reactive H (Nonreactive) HIV Ag/Ab Combo Qual Nonreactive (Nonreactive) Exam - Constitutional Vitals: Temp Pulse Resp BP Pulse Ox 97.7 F 54 15 98/54 96 10/17/16 07:34 10/17/16 07:34 10/17/16 07:34 10/17/16 07:34 10/17/16 08:31 General appearance: average body habitus, cooperative, no acute distress - Head Head exam: Present: atraumatic, normal inspection, normocephalic - Eye Eye exam: Present: EOMI, normal appearance, PERRL Pupils: Present: normal accommodation Additional comments: No subconjunctival hemorrhage noted. - ENT ENT exam: Present: mucous membranes moist - Neck Neck exam: Present: normal inspection - Respiratory Respiratory exam: Present: CTAB. Absent: rales, respiratory distress, rhonchi, wheezes - Cardiovascular Cardiovascular exam: Present: RRR, +S1, +S2 - GI/Abdominal GI/Abdominal exam: Present: normal bowel sounds, soft. Absent: distended, tenderness - Extremities Exam Extremities exam: Present: normal inspection. Absent: joint swelling, pedal edema, tenderness Additional comments: No endocarditis stigmata noted. - Back Exam Back exam: Present: normal inspection. Absent: paraspinal tenderness, vertebral tenderness - Neurological Exam Neurological exam: Present: alert, oriented X3, no focal deficits - Psychiatric Psychiatric exam: Present: normal affect, normal mood - Skin Skin exam: Present: dry, intact, normal color, warm Consult Discharge Plan - Plan Referrals: Selene Clayton MD [Primary Care Provider] - 10/18/16 2:00 pm Lainey Alvarado CNP [Advanced Practice Nurse] - 10/31/16 9:30 am Mandi Faustin DO [Partnered Physician] - 10/13/16 9:20 am
--- NOTE | 2016-10-17 16:42 | Internal Med Progress Note ---
Date of Encounter: 10/17/16 Time of Encounter: 10:00 - Assessment and plan (1) Bandemia Current Visit: Yes Status: Acute Assessment and plan: Improved now. No source of infection identified. One out of 2 initial blood cultures grew gram-positive rods, repeat blood cultures negative. Continue vancomycin, D/C Rocephin. Patient is at high risk because of his vancomycin, need close monitoring (2) Bacteremia Current Visit: Yes Status: Acute Assessment and plan: Patient has a history of IV drug use. ID and the cardio consult appreciated. Final culture results shows bacillus cereus, sensitive to Vanco, which pt is on. Plan is to continue Vanco for total of 6 weeks. (3) Endocarditis Current Visit: Yes Status: Acute Assessment and plan: STEPHANY shows a questionable vegetation. Patient possibly needs a long-term antibiotic. Patient is noncompliant with history of AMA previously. ID recommend patient has IV antibiotic in the ECF facility. Discussed with the patient, he agrees to be discharged to ECF. SW is working on placement, difficult placement because pt's hx of IVDU. Patient has a PICC line placed Qualifiers: Endocarditis type: infective Infective endocarditis organism: unspecified organism Chronicity: acute Qualified Code(s): I33.0 - Acute and subacute infective endocarditis (4) PFO (patent foramen ovale) Current Visit: Yes Status: Acute Assessment and plan: Patient has declined surgery previously. May need to follow up with cardiology as outpatient (5) Sepsis Current Visit: Yes Status: Acute Assessment and plan: Resolved. We will continue antibiotic. Lactate acid level is not high. 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 Continue aspirin, changed to 81 mg daily. lipid profile noted to be within normal limits. Physical therapy screen and occupational therapy recommends no further treatment. Supportive care. Qualifiers: CVA mechanism: embolism Precerebral and cerebral artery: unspecified cerebral artery Qualified Code(s): I63.40 - Cerebral infarction due to embolism of unspecified cerebral artery (7) Hepatitis C Current Visit: Yes Status: Chronic Assessment and plan: Treatment naive. Needs outpatient follow-up. I informed the patient that Hep C is treatable disease now. If leave untreated , it will develop cirrhosis and possibly liver cancer. Patient verbalizes understanding and said he will see GI as outpatient after discharge. Qualifiers: Viral hepatitis chronicity: chronic Hepatic coma status: without hepatic coma Qualified Code(s): B18.2 - Chronic viral hepatitis C (8) IV drug user Current Visit: Yes Status: Chronic Assessment and plan: Active polysubstance abuse along with IV heroine use. IV hydration and supportive care. clinical services consultant consult for safe discharge and rehabilitation resources. (9) Acute encephalopathy Current Visit: Yes Status: Resolved Assessment and plan: Could be related to substance abuse, recent stroke, possibility of underlying infection/sepsis. Encephalopathy is currently improved and patient is back to baseline mental status. (10) DVT prophylaxis Current Visit: Yes Status: Acute Assessment and plan: Lovenox subcutaneously - Time Spent With Patient Greater than 35 minutes - Subjective Interval history: Patient is a 31-year-old male admitted for confusion. His past medical history is significant for IV drug use, CVA. Patient was found positive blood culture. Cardiology and ID consult appreciated. I have seen and examined the patient. He denies chest pain or shortness of breath. No fever. Vitals are stable. Repeat blood culture negative 2. However, STEPHANY shows questionable vegetations. ID consult appreciated. Plan is to discharge pt to ECF for fpc IV abx, likely 6 wks. SW is working for placement. Patient had a PICC line placed. - Constitutional Vitals: Temp Pulse Resp BP Pulse Ox 97.7 F 67 15 114/66 96 10/17/16 16:00 10/17/16 16:00 10/17/16 16:00 10/17/16 16:00 10/17/16 16:00 General appearance: Present: A&O X 3, answers questions appropriately - Head Head exam: Present: atraumatic, normocephalic - Eye Eye exam: Present: PERRL, conjuntiva pink, sclera anicteric Pupils: Present: PERRL - Neck Neck exam general surgery: Present: supple, trachea midline. Absent: lymphadenopathy - Respiratory Respiratory exam: Present: CTAB. Absent: accessory muscle use, rales, rhonchi, wheezes - Cardiovascular Cardiovascular exam: Present: RRR, +S1, +S2. Absent: diastolic murmur, gallop, rubs, systolic murmur - GI/Abdominal GI/Abdominal exam: Present: normal bowel sounds, soft, no peritoneal signs. Absent: distended, tenderness - Extremities Exam Extremities exam: Present: warm, radial pulses palpable and symetrical. Absent : calf tenderness, cyanotic, pedal edema - Neurological Exam Neurological exam: Present: CN II-XII intact, oriented X3, no focal deficits. Absent: pronater drift, facial droop, speech deficit - Skin Skin exam: Present: dry, intact Internal Medicine: Result - Labs CBC & Chem 7: 10/15/16 04:00 10/15/16 04:00 Consult Discharge Plan - Plan Referrals: Selene Clayton MD [Primary Care Provider] - 10/18/16 2:00 pm Lainey Alvarado CNP [Advanced Practice Nurse] - 10/31/16 9:30 am Mandi Faustin DO [Partnered Physician] - 10/13/16 9:20 am
[2016-10-18] MEDS: *HR* LORazepam 2 MG/ML VIAL IVP PRN (00:21)
[2016-10-18] MEDS: diazePAM 10 MG TABLET PO SCH ×4 (01:17→20:22)
[2016-10-18] MEDS: Vancomycin 2,000 MG in D5% in Water 500 ML IVPB SCH ×2 (03:21→15:46)
[2016-10-18 03:44] LABS: Basophils # 0.1 K/mcL (0.0-0.2); Basophils % 0.7 %; Eosinophils # 0.1 K/mcL (0.0-0.6); Eosinophils % 0.8 %; Hematocrit 37.6 % (37.5-50.1); Immature Granulocytes % 0.8 % (0-4); Lymphocytes # 3.1 K/mcL (0.6-4.6); Lymphocytes % 40.1 %; Mean Corpuscular HGB Conc 34.6 g/dL (31.6-35.5); Mean Corpuscular Hemoglobin 30.8 pg (28.0-33.3); Mean Corpuscular Volume 89.1 fL (83.0-100.0); Mean Platelet Volume 8.5 fL (9.4-12.4); Monocytes # 0.5 K/mcL (0.0-1.3); Monocytes % 6.5 %; Neutrophils # 3.9 K/mcL (1.6-8.9); Platelet Count 247 K/mcL (140-400); Red Blood Count 4.22 M/mcL (4.19-5.50); Segmented Neutrophils % 51.1 %
[2016-10-18 03:47] LABS: Blood Urea Nitrogen 13 mg/dL (8-26); Carbon Dioxide 25 mEq/L (19-29); Chloride 106 mEq/L (98-109); Potassium 3.9 mEq/L (3.5-4.5); Sodium 138 mEq/L (136-145)
[2016-10-18 03:48] LABS: BUN/Creatinine Ratio 15 (6-26); Calcium 8.8 mg/dL (8.6-10.8); Glucose 93 mg/dL (70-99); Osmolality,Calculated 286 (280-300); eGFR For African Americans > 60 (> 60); eGFR For Non-African Americans > 60 (> 60)
[2016-10-18] MEDS: *HR* Enoxaparin 40 MG/0.4 ML SYRINGE SQ SCH (05:10)
[2016-10-18] MEDS: Famotidine 20 MG TABLET PO SCH ×2 (09:10→20:22)
[2016-10-18] MEDS: Aspirin 81 MG TAB.CHEW PO SCH (09:10)
[2016-10-18] MEDS: Nicotine 21 MG PATCH.TD24 TD SCH (09:11)
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
--- NOTE | 2016-10-18 10:47 | Infectious Disease Progress No ---
Date of Encounter: 10/18/16 Time of Encounter: 09:15 - Assessment and Plan (1) Sepsis Current Visit: Yes Status: Resolved The patient had three SIRS criteria on admission. Lactic acid normal on admission. Received IV fluid resuscitation in the ED. Does not require vasopressors. Secondary to bacteremia vs. infective endocarditis. Improved. Tachycardia and bandemia have resolved. Hypotension appears to have resolved. Blood cultures obtained 10/07/16 are positive 1/2 sets for Baccilus cereus, sensitive to Vanc. Repeat blood cultures drawn 10/09/16 are negative. Qualifiers: Sepsis type: sepsis due to unspecified organism Qualified Code(s): A41.9 - Sepsis, unspecified organism (2) Bacteremia Current Visit: Yes Status: Acute Causative organism Bacillus cereus. Blood cultures drawn 10/07/16 are positive 1/2 sets for Bacillus cereus, vanc sensitive. Repeat blood cultures drawn 10/09/[address] chest negative for septic emboli. MRI of the brain negative for septic emboli. The patient has one major and one minor Burton's Criteria. It is possible that this is a contaminant; however, given the patient's history of IVDU, recent illness, and possible vegetation on STEPH[place], we will need to go ahead and treat as true infection. Continue Vancomycin IV for now (day 12). Pharmacy to dose. Goal trough approximately 15. Monitor renal function and for drug toxicity and dose-adjust antibiotics. Duration of treatment depends on the clinical picture, but likely 6 weeks of IV antibiotics. Treat through 11/20/16. Weekly CBC, BMP, and Vanc trough. Weekly PICC care. Follow up with ID 10/31/16 at 0930. (3) Endocarditis Current Visit: Yes Status: Acute Causative organism Bacillus cereus. Echodensity noted during STEPHANY, but could not get patient adequately sedated to get a good look.. Repeat blood cultures drawn 10/09/16 are negative. No endocarditis stigmata noted on exam. The patient meets one major and one minor Burton's criteria making this possible IE. Rheumatoid factor negative. Coxiella burnettii antibody negative. Continue antibiotics as above for now. Duration of treatment depends on the clinical picture, but likely 6 weeks of IV antibiotics. Patient remains agreeable to placement in an ECF for IV antibiotic therapy. reference services head has been consulted and is following and is working on placement. Will need weekly CBC and BMP. Will need weekly PICC care. Will need to follow up with ID 2 weeks after discharge. Will need repeat STEPHANY once antibiotic therapy is completed. Patient should follow up with cardiology after discharge to establish care in preparation for repeat STEPHANY post-treatment. Qualifiers: Endocarditis type: infective Infective endocarditis organism: unspecified organism Chronicity: acute Qualified Code(s): I33.0 - Acute and subacute infective endocarditis (4) PFO (patent foramen ovale) Current Visit: Yes Status: Acute Patient declined surgery previously, but is now requesting surgery to have this fixed. Will likely need referral to [facility] once endocarditis treatment is complete. (5) Acute encephalopathy Current Visit: Yes Status: Resolved (6) CVA (cerebral vascular accident) Current Visit: Yes Status: Chronic Possibly secondary to PFO. MRI shows findings consistent with hypoxic/anoxic brain injury, but no new emboli. Qualifiers: CVA mechanism: embolism Precerebral and cerebral artery: unspecified cerebral artery Qualified Code(s): I63.40 - Cerebral infarction due to embolism of unspecified cerebral artery (7) IV drug user Current Visit: Yes Status: Chronic Check HIV nonreactive. Hep C positive. Follow up with GI as an outpatient. Hep Bc Ab in the [place] zone. Patient reports he started Hep B vaccination series , but did not complete. Should re-test in 1 week. Last used IV heroin 1 week ago. Has a previous history of snorting cocaine as well. - Subjective Interval history: Patient seen and examined. No acute events noted overnight. Still awaiting placement for IV antibiotics. Patient resting quietly in bed with friend at the bedside.States he feels well overall. Denies fevers or chills. Denies chest pain , shortness of breath, or cough. Denies nausea, vomiting, or diarrhea. Denies abdominal pain or urinary complaints. Denies joint or back pain at this time. Denies oral thrush or new skin lesions. Infect Dis PN-Objective Data - Labs CBC & Chem 7: 10/18/16 03:20 10/18/16 03:20 Labs: Laboratory Results - last 24 hr 10/18/16 10/18/16 03:20 03:20 WBC 7.7 RBC 4.22 Hgb 13.0 Hct 37.6 MCV 89.1 MCH 30.8 MCHC 34.6 RDW 13.0 Plt Count 247 MPV 8.5 L Immature Gran % 0.8 Seg Neutrophils % 51.1 Lymphocytes % 40.1 Monocytes % 6.5 Eosinophils % 0.8 Basophils % 0.7 Neutrophils # 3.9 Lymphocytes # 3.1 Monocytes # 0.5 Eosinophils # 0.1 Basophils # 0.1 Sodium 138 Potassium 3.9 Chloride 106 Carbon Dioxide 25 BUN 13 Creatinine 0.87 Est GFR ( Amer) > 60 Est GFR (Non-Af Amer) > 60 BUN/Creatinine Ratio 15 Glucose 93 Calculated Osmolality 286 Calcium 8.8 Cultures: Cultures 10/09/16 10:42 Blood Culture - Final Peripheral Venipuncture No growth. 10/09/16 10:42 Blood Culture - Final Peripheral Venipuncture No growth. Serology 10/12/16 10/12/16 10/07/16 Range/Units 04:46 04:46 15:10 Urine Color Yellow (Yellow) Urine Clarity Clear (Clear) Urine pH 7.0 (5.0-8.0) pH Units Ur Specific [place] 1.021 (1.010-1.025) Urine Protein Negative (Neg-Trace) mg/dL Urine Glucose (UA) Normal (Normal) mg/dL Urine Ketones Negative (Negative) mg/dL Urine Blood Negative (Negative) Urine Nitrite Negative (Negative) Urine Bilirubin Negative (Negative) Urine Urobilinogen Normal (Normal) mg/dL Ur Leukocyte Esterase Negative (Negative) Ur Culture Indicated? NO (NO) C.burnetii Phase I IgG NEGATIVE (Negative) C.burnetii Phase I IgM NEGATIVE (Negative) C.burnetii Phase II IgG NEGATIVE (Negative) C.burnetii Phase II IgM NEGATIVE (Negative) Hepatitis A IgM Ab Nonreactive (Nonreactive) Hep Bs Antigen Nonreactive (Nonreactive) Hep B Core IgM Ab Grayzone H (Nonreactive) Hepatitis C Ab Screen Reactive H (Nonreactive) HIV Ag/Ab Combo Qual Nonreactive (Nonreactive) Exam - Constitutional Vitals: Temp Pulse Resp BP Pulse Ox 97.7 F 63 20 99/57 98 10/18/16 07:21 10/18/16 07:21 10/18/16 07:21 10/18/16 07:21 10/18/16 09:22 General appearance: average body habitus, cooperative, no acute distress - Head Head exam: Present: atraumatic, normal inspection, normocephalic - Eye Eye exam: Present: EOMI, normal appearance, PERRL Pupils: Present: normal accommodation Additional comments: No subconjunctival hemorrhage noted. - ENT ENT exam: Present: mucous membranes moist - Neck Neck exam: Present: normal inspection. Absent: lymphadenopathy - Respiratory Respiratory exam: Present: CTAB. Absent: rales, respiratory distress, rhonchi, wheezes - Cardiovascular Cardiovascular exam: Present: RRR, +S1, +S2. Absent: diastolic murmur, systolic murmur - GI/Abdominal GI/Abdominal exam: Present: normal bowel sounds, soft. Absent: distended, tenderness - Extremities Exam Extremities exam: Present: normal inspection. Absent: joint swelling, pedal edema, tenderness Additional comments: No endocarditis stigmata noted. - Back Exam Back exam: Present: normal inspection. Absent: paraspinal tenderness, vertebral tenderness - Neurological Exam Neurological exam: Present: alert, oriented X3, no focal deficits - Psychiatric Psychiatric exam: Present: normal affect, normal mood - Skin Skin exam: Present: dry, intact, normal color, warm - Additional findings Additional findings: PICC line noted to the RUE with transparent dressing C/D/I. Consult Discharge Plan - Plan Additional Instructions: Follow-up with primary care physician within the next 7 days. Follow up with his infectious diseases service within the next 3 weeks. Continue vancomycin until 11/20/2016. Taper diazepam, can use Ativan as needed. Follow-up with the surgical service at [facility] to consider closing his PFO surgically after completing antibiotic therapy. Continue aspirin. Follow-up with cardiology within the next 4 weeks Referrals: Selene Clayton MD [Primary Care Provider] - 10/18/16 2:00 pm Lainey Alvarado CNP [Advanced Practice Nurse] - 10/31/16 9:30 am Mandi Faustin DO [Partnered Physician] - 10/13/16 9:20 am Prescriptions: LORazepam [Ativan] 2 mg PO Q4HR PRN #40 tablet PRN Reason: Agitation Vancomycin [Vancocin] 2,000 mg IV Q12HR 32 Days Diazepam [Valium] 10 mg PO Q6H 10 Days
[2016-10-18] MEDS: *HR* LORazepam 1 MG TABLET PO PRN ×3 (10:51→22:43)
[2016-10-19] MEDS ORDERED: Melatonin 3 MG TABLET PO PRN (01:14)
[2016-10-19] MEDS: diazePAM 10 MG TABLET PO SCH (01:28)
[2016-10-19] MEDS: Vancomycin 2,000 MG in D5% in Water 500 ML IVPB SCH ×2 (03:58→17:24)
[2016-10-19] MEDS: *HR* LORazepam 1 MG TABLET PO PRN ×2 (04:09→13:10)
[2016-10-19] MEDS: *HR* Enoxaparin 40 MG/0.4 ML SYRINGE SQ SCH (05:50)
--- NOTE | 2016-10-19 08:35 | Internal Med Progress Note ---
Date of Encounter: 10/19/16 Time of Encounter: 08:29 - Assessment and plan (1) Bacteremia Current Visit: Yes Status: Acute Assessment and plan: Bacteremia with bandemia and possible acute endocarditis Patient has a history of IV drug use. ID and the cardio were consulted Continue vancomycin until 11/20/2016. Plan is to continue Vanco for total of 6 weeks. STEPHANY is suspicious for endocarditis /vegetation Blood cultures drawn 09/14/16 are positive for Staph coagulase negative species sensitive only to rifampin, Bactrim and vancomycin, also, on 10/07/16 1 of2 sets was positive for Bacillus cereus, vanc sensitive, also sensitive to meropenem and gentamicin, resistant to penicillin. Repeat blood cultures drawn 10/09/[address] chest negative for septic emboli. MRI of the brain negative for septic emboli. The patient has one major and one minor Burton's Criteria. Was evaluated by the infectious diseases service, on antibiotic therapy was recommended to be continued until 11/20/2016 (2) Bandemia Current Visit: Yes Status: Acute Assessment and plan: resolved. Continue vancomycin, discontinued Rocephin. Patient is at high risk because of his vancomycin, need close monitoring (3) Endocarditis Current Visit: Yes Status: Acute Assessment and plan: STEPHANY shows a questionable vegetation. Patient possibly needs a long-term antibiotic. Patient is noncompliant with history of AMA previously. ID recommend patient has IV antibiotic in the ECF facility. Discussed with the patient, he agrees to be discharged to ECF. SW is working on placement, difficult placement because pt's hx of IVDU. Patient has a PICC line placed Qualifiers: Endocarditis type: infective Infective endocarditis organism: unspecified organism Chronicity: acute Qualified Code(s): I33.0 - Acute and subacute infective endocarditis (4) Opiate withdrawal Current Visit: Yes Status: Acute Assessment and plan: Patient is an active polysubstance abuser including IV heroine. He does have some anxiety, diarrhea due to withdrawal. Continue supportive care and when necessary IV Ativan and PO Imodium. Taper diazepam (5) PFO (patent foramen ovale) Current Visit: Yes Status: Acute Assessment and plan: Patient has declined surgery previously. 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 Continue aspirin, changed to 81 mg daily. lipid profile noted to be within normal limits. Physical therapy screen and occupational therapy recommends no further treatment. Supportive care. Qualifiers: CVA mechanism: embolism Precerebral and cerebral artery: unspecified cerebral artery Qualified Code(s): I63.40 - Cerebral infarction due to embolism of unspecified cerebral artery (7) Hepatitis C Current Visit: Yes Status: Chronic Assessment and plan: Treatment naive. Needs outpatient follow-up. Patient verbalizes understanding and said he will see GI as outpatient after discharge. Qualifiers: Viral hepatitis chronicity: chronic Hepatic coma status: without hepatic coma Qualified Code(s): B18.2 - Chronic viral hepatitis C (8) IV drug user Current Visit: Yes Status: Chronic Assessment and plan: Active polysubstance abuse along with IV heroine use. IV hydration and supportive care. check services clerk consult for safe discharge and rehabilitation resources. - Time Spent With Patient Greater than 35 minutes - Subjective Interval history: The patient is very somnolent at the moment, was able to mention that he does not have any chest pain or short of breath, no abdominal pain, no dysuria. no nausea or vomiting. denies pain at the moment - Constitutional Vitals: Temp Pulse Resp BP Pulse Ox 97.5 F L 59 15 100/61 96 10/19/16 07:20 10/19/16 07:20 10/19/16 07:20 10/19/16 07:20 10/19/16 07:20 General appearance: Present: A&O X 3, answers questions appropriately - Head Head exam: Present: atraumatic, normocephalic - Eye Eye exam: Present: PERRL, conjuntiva pink, sclera anicteric Pupils: Present: PERRL - Neck Neck exam general surgery: Present: supple, trachea midline. Absent: lymphadenopathy - Respiratory Respiratory exam: Present: CTAB. Absent: accessory muscle use, rales, rhonchi, wheezes - Cardiovascular Cardiovascular exam: Present: RRR, +S1, +S2. Absent: diastolic murmur, gallop, rubs, systolic murmur - GI/Abdominal GI/Abdominal exam: Present: normal bowel sounds, soft, no peritoneal signs. Absent: distended, tenderness - Extremities Exam Extremities exam: Present: warm, radial pulses palpable and symetrical. Absent : calf tenderness, cyanotic, pedal edema Additional comments: PICC line in right upper extremity - Neurological Exam Neurological exam: Present: CN II-XII intact, oriented X3, no focal deficits. Absent: pronater drift, facial droop, speech deficit - Skin Skin exam: Present: dry, intact Internal Medicine: Result - Labs CBC & Chem 7: 10/18/16 03:20 10/18/16 03:20 Consult Discharge Plan - Plan Additional Instructions: Follow-up with primary care physician within the next 7 days. Follow up with his infectious diseases service within the next 3 weeks. Continue vancomycin until 11/20/2016. Taper diazepam, can use Ativan as needed. Follow-up with the surgical service at [facility] to consider closing his PFO surgically after completing antibiotic therapy. Continue aspirin. Follow-up with cardiology within the next 4 weeks Referrals: Selene Clayton MD [Primary Care Provider] - 10/18/16 2:00 pm Lainey Alvarado, TR[facility] [Advanced Practice Nurse] - 10/31/16 9:30 am Mandi Faustin DO [Partnered Physician] - 10/13/16 9:20 am Prescriptions: LORazepam [Ativan] 2 mg PO Q4HR PRN #40 tablet PRN Reason: Agitation Vancomycin [Vancocin] 2,000 mg IV Q12HR 32 Days Diazepam [Valium] 10 mg PO Q6H 10 Days
[2016-10-19] MEDS: diazePAM 5 MG TABLET PO SCH ×3 (09:15→19:32)
[2016-10-19] MEDS: Famotidine 20 MG TABLET PO SCH (09:15)
[2016-10-19] MEDS: Nicotine 21 MG PATCH.TD24 TD SCH (09:15)
[2016-10-19] MEDS: Aspirin 81 MG TAB.CHEW PO SCH (09:15)
--- NOTE | 2016-10-19 11:53 | Infectious Disease Progress No ---
Date of Encounter: 10/19/16 Time of Encounter: 10:20 - Assessment and Plan (1) Sepsis Current Visit: Yes Status: Resolved The patient had three SIRS criteria on admission. Lactic acid normal on admission. Received IV fluid resuscitation in the ED. Does not require vasopressors. Secondary to bacteremia vs. infective endocarditis. Improved. Tachycardia and bandemia have resolved. Hypotension appears to have resolved. Blood cultures obtained 10/07/16 are positive 1/2 sets for Baccilus cereus, sensitive to Vanc. Repeat blood cultures drawn 10/09/16 are negative. Qualifiers: Sepsis type: sepsis due to unspecified organism Qualified Code(s): A41.9 - Sepsis, unspecified organism (2) Bacteremia Current Visit: Yes Status: Acute Causative organism Bacillus cereus. Blood cultures drawn 10/07/16 are positive 1/2 sets for Bacillus cereus, vanc sensitive. Repeat blood cultures drawn 10/09/[address] chest negative for septic emboli. MRI of the brain negative for septic emboli. The patient has one major and one minor Burton's Criteria. It is possible that this is a contaminant; however, given the patient's history of IVDU, recent illness, and possible vegetation on STE[place], we will need to go ahead and treat as true infection. Continue Vancomycin IV for now (day 13). Pharmacy to dose. Goal trough approximately 15. Monitor renal function and for drug toxicity and dose-adjust antibiotics. Duration of treatment depends on the clinical picture, but likely 6 weeks of IV antibiotics. Treat through 11/20/16. Weekly CBC, BMP, and Vanc trough. Weekly PICC care. Follow up with ID 10/31/16 at 0930. (3) Endocarditis Current Visit: Yes Status: Acute Causative organism Bacillus cereus. Echodensity noted during STEPHANY, but could not get patient adequately sedated to get a good look.. Repeat blood cultures drawn 10/09/16 are negative. No endocarditis stigmata noted on exam. The patient meets one major and one minor Burton's criteria making this possible IE. Rheumatoid factor negative. Coxiella burnettii antibody negative. Continue antibiotics as above for now. Duration of treatment depends on the clinical picture, but likely 6 weeks of IV antibiotics. Patient remains agreeable to placement in an ECF for IV antibiotic therapy. counseling services manager has been consulted and is following and is working on placement. Will need weekly CBC and BMP. Will need weekly PICC care. Will need to follow up with ID 2 weeks after discharge. Will need repeat STEPHANY once antibiotic therapy is completed. Patient should follow up with cardiology after discharge to establish care in preparation for repeat STEPHANY post-treatment. Qualifiers: Endocarditis type: infective Infective endocarditis organism: unspecified organism Chronicity: acute Qualified Code(s): I33.0 - Acute and subacute infective endocarditis (4) PFO (patent foramen ovale) Current Visit: Yes Status: Acute Patient declined surgery previously, but is now requesting surgery to have this fixed. Will likely need referral to [facility] once endocarditis treatment is complete. (5) Acute encephalopathy Current Visit: Yes Status: Resolved (6) CVA (cerebral vascular accident) Current Visit: Yes Status: Chronic Possibly secondary to PFO. MRI shows findings consistent with hypoxic/anoxic brain injury, but no new emboli. Qualifiers: CVA mechanism: embolism Precerebral and cerebral artery: unspecified cerebral artery Qualified Code(s): I63.40 - Cerebral infarction due to embolism of unspecified cerebral artery (7) IV drug user Current Visit: Yes Status: Chronic Check HIV nonreactive. Hep C positive. Follow up with GI as an outpatient. Hep Bc Ab in the [place]. Patient reports he started Hep B vaccination series , but did not complete. Should re-test in 1 week. Last used IV heroin 1 week ago. Has a previous history of snorting cocaine as well. - Subjective Interval history: Patient seen and examined. No acute events noted overnight. Still awaiting placement for IV antibiotics. Patient resting quietly in bed. States he feels well overall, but reports increased anxiety and intermittent panic attacks. Denies fevers or chills. Denies chest pain, shortness of breath, or cough. Denies nausea, vomiting, or diarrhea. Denies abdominal pain or urinary complaints. Denies joint or back pain at this time. Denies oral thrush or new skin lesions. Infect Dis PN-Objective Data - Labs CBC & Chem 7: 10/18/16 03:20 10/18/16 03:20 Cultures: Cultures 10/09/16 10:42 Blood Culture - Final Peripheral Venipuncture No growth. 10/09/16 10:42 Blood Culture - Final Peripheral Venipuncture No growth. Serology 10/12/16 10/12/16 10/07/16 Range/Units 04:46 04:46 15:10 Urine Color Yellow (Yellow) Urine Clarity Clear (Clear) Urine pH 7.0 (5.0-8.0) pH Units Ur Specific [place] 1.021 (1.010-1.025) Urine Protein Negative (Neg-Trace) mg/dL Urine Glucose (UA) Normal (Normal) mg/dL Urine Ketones Negative (Negative) mg/dL Urine Blood Negative (Negative) Urine Nitrite Negative (Negative) Urine Bilirubin Negative (Negative) Urine Urobilinogen Normal (Normal) mg/dL Ur Leukocyte Esterase Negative (Negative) Ur Culture Indicated? NO (NO) C.burnetii Phase I IgG NEGATIVE (Negative) C.burnetii Phase I IgM NEGATIVE (Negative) C.burnetii Phase II IgG NEGATIVE (Negative) C.burnetii Phase II IgM NEGATIVE (Negative) Hepatitis A IgM Ab Nonreactive (Nonreactive) Hep Bs Antigen Nonreactive (Nonreactive) Hep B Core IgM Ab Gray[place] H (Nonreactive) Hepatitis C Ab Screen Reactive H (Nonreactive) HIV Ag/Ab Combo Qual Nonreactive (Nonreactive) Exam - Constitutional Vitals: Temp Pulse Resp BP Pulse Ox 97.5 F L 59 15 100/61 96 10/19/16 07:20 10/19/16 07:20 10/19/16 07:20 10/19/16 07:20 10/19/16 09:00 General appearance: average body habitus, cooperative, no acute distress - Head Head exam: Present: atraumatic, normal inspection, normocephalic - Eye Eye exam: Present: EOMI, normal appearance, PERRL Pupils: Present: normal accommodation Additional comments: No subconjunctival hemorrhage noted. - ENT ENT exam: Present: mucous membranes moist - Neck Neck exam: Present: normal inspection - Respiratory Respiratory exam: Present: CTAB. Absent: rales, respiratory distress, rhonchi, wheezes - Cardiovascular Cardiovascular exam: Present: RRR, +S1, +S2 - GI/Abdominal GI/Abdominal exam: Present: normal bowel sounds, soft. Absent: distended, tenderness - Extremities Exam Extremities exam: Present: normal inspection. Absent: joint swelling, pedal edema, tenderness Additional comments: No endocarditis stigmata noted. - Neurological Exam Neurological exam: Present: alert, oriented X3, no focal deficits - Psychiatric Psychiatric exam: Present: normal affect, normal mood - Skin Skin exam: Present: dry, intact, normal color, warm - Additional findings Additional findings: PICC line noted to the RUE with transparent dressing C/D/I. Consult Discharge Plan - Plan Additional Instructions: Follow-up with primary care physician within the next 7 days. Follow up with his infectious diseases service within the next 3 weeks. Continue vancomycin until 11/20/2016. Taper diazepam, can use Ativan as needed. Follow-up with the surgical service at [facility] to consider closing his PFO surgically after completing antibiotic therapy. Continue aspirin. Follow-up with cardiology within the next 4 weeks Referrals: Selene Clayton MD [Primary Care Provider] - 10/18/16 2:00 pm Lainey Alvarado CNP [Advanced Practice Nurse] - 10/31/16 9:30 am Mandi Faustin DO [Partnered Physician] - 10/13/16 9:20 am Prescriptions: LORazepam [Ativan] 2 mg PO Q4HR PRN #40 tablet PRN Reason: Agitation Vancomycin [Vancocin] 2,000 mg IV Q12HR 32 Days Diazepam [Valium] 10 mg PO Q6H 10 Days
[2016-10-20] MEDS: *HR* LORazepam 1 MG TABLET PO PRN (00:36)
[2016-10-20] MEDS: Vancomycin 2,000 MG in D5% in Water 500 ML IVPB SCH (01:59)
[2016-10-20] MEDS: diazePAM 5 MG TABLET PO SCH ×3 (06:39→14:33)
[2016-10-20] MEDS: *HR* Enoxaparin 40 MG/0.4 ML SYRINGE SQ SCH (06:55)
[2016-10-20 08:03] VITALS: BP 93/66
[2016-10-20] MEDS: Aspirin 81 MG TAB.CHEW PO SCH (08:59)
[2016-10-20] MEDS: Nicotine 21 MG PATCH.TD24 TD SCH (09:00)
--- NOTE | 2016-10-20 10:07 | Internal Med Progress Note ---
Date of Encounter: 10/20/16 Time of Encounter: 10:05 - Assessment and plan (1) Bacteremia Current Visit: Yes Status: Acute Assessment and plan: Bacteremia with bandemia and possible acute endocarditis Patient has a history of IV drug use. ID and the cardio were consulted Continue vancomycin until 11/20/2016. Plan is to continue Vanco for total of 6 weeks. STEPHANY is suspicious for endocarditis /vegetation Blood cultures drawn 09/14/16 are positive for Staph coagulase negative species sensitive only to rifampin, Bactrim and vancomycin, also, on 10/07/16 1 of2 sets was positive for Bacillus cereus, vanc sensitive, also sensitive to meropenem and gentamicin, resistant to penicillin. Repeat blood cultures drawn 10/09/[address] chest negative for septic emboli. MRI of the brain negative for septic emboli. The patient has one major and one minor Burton's Criteria. Was evaluated by the infectious diseases service, on antibiotic therapy was recommended to be continued until 11/20/2016 Follow-up with primary care physician within the next 7 days. Follow up with his infectious diseases service within the next 3 weeks. Continue vancomycin until 11/20/2016. Taper diazepam, can use Ativan as needed. Follow-up with the surgical service at [facility] to consider closing his PFO surgically after completing antibiotic therapy. Continue aspirin. Follow-up with cardiology within the next 4 weeks (2) Bandemia Current Visit: Yes Status: Acute Assessment and plan: resolved. Continue vancomycin, discontinued Rocephin. Patient is at high risk because of his vancomycin, need close monitoring (3) Endocarditis Current Visit: Yes Status: Acute Assessment and plan: STEPHANY shows a questionable vegetation. Patient possibly needs a long-term antibiotic. Patient is noncompliant with history of AMA previously. ID recommend patient has IV antibiotic in the ECF facility. Discussed with the patient, he agrees to be discharged to ECF. SW is working on placement, difficult placement because pt's hx of IVDU. Patient has a PICC line placed Qualifiers: Endocarditis type: infective Infective endocarditis organism: unspecified organism Chronicity: acute Qualified Code(s): I33.0 - Acute and subacute infective endocarditis (4) Opiate withdrawal Current Visit: Yes Status: Acute Assessment and plan: Patient is an active polysubstance abuser including IV heroine. He does have some anxiety, diarrhea due to withdrawal. Continue supportive care and when necessary IV Ativan and PO Imodium. Taper diazepam (5) PFO (patent foramen ovale) Current Visit: Yes Status: Acute Assessment and plan: Patient has declined surgery previously. 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 Continue aspirin, changed to 81 mg daily. lipid profile noted to be within normal limits. Physical therapy screen and occupational therapy recommends no further treatment. Supportive care. Qualifiers: CVA mechanism: embolism Precerebral and cerebral artery: unspecified cerebral artery Qualified Code(s): I63.40 - Cerebral infarction due to embolism of unspecified cerebral artery (7) Hepatitis C Current Visit: Yes Status: Chronic Assessment and plan: Treatment naive. Needs outpatient follow-up. Patient verbalizes understanding and said he will see GI as outpatient after discharge. Qualifiers: Viral hepatitis chronicity: chronic Hepatic coma status: without hepatic coma Qualified Code(s): B18.2 - Chronic viral hepatitis C (8) IV drug user Current Visit: Yes Status: Chronic Assessment and plan: Active polysubstance abuse along with IV heroine use. IV hydration and supportive care. technical services specialist consult for safe discharge and rehabilitation resources. - Subjective Interval history: The patient is feeling better, denies any chest pain or short of breath, no abdominal pain, no dysuria. no nausea or vomiting. denies pain at the moment - Constitutional Vitals: Temp Pulse Resp BP Pulse Ox 97.9 F 79 18 93/66 96 10/20/16 08:00 10/20/16 08:00 10/20/16 08:00 10/20/16 08:00 10/20/16 08:00 General appearance: Present: A&O X 3, answers questions appropriately - Head Head exam: Present: atraumatic, normocephalic - Eye Eye exam: Present: PERRL, conjuntiva pink, sclera anicteric Pupils: Present: PERRL - Neck Neck exam general surgery: Present: supple, trachea midline. Absent: lymphadenopathy - Respiratory Respiratory exam: Present: CTAB. Absent: accessory muscle use, rales, rhonchi, wheezes - Cardiovascular Cardiovascular exam: Present: RRR, +S1, +S2. Absent: diastolic murmur, gallop, rubs, systolic murmur - GI/Abdominal GI/Abdominal exam: Present: normal bowel sounds, soft, no peritoneal signs. Absent: distended, tenderness - Extremities Exam Extremities exam: Present: warm, radial pulses palpable and symetrical. Absent : calf tenderness, cyanotic, pedal edema Additional comments: PICC line in the right upper extremity - Neurological Exam Neurological exam: Present: CN II-XII intact, oriented X3, no focal deficits. Absent: pronater drift, facial droop, speech deficit - Skin Skin exam: Present: dry, intact Internal Medicine: Result - Labs CBC & Chem 7: 10/18/16 03:20 10/18/16 03:20 Consult Discharge Plan - Plan Additional Instructions: Follow-up with primary care physician within the next 7 days. Follow up with his infectious diseases service within the next 3 weeks. Continue vancomycin until 11/20/2016. Taper diazepam, can use Ativan as needed. Follow-up with the surgical service at [facility] to consider closing his PFO surgically after completing antibiotic therapy. Continue aspirin. Follow-up with cardiology within the next 4 weeks Referrals: Selene Clayton MD [Primary Care Provider] - 10/18/16 2:00 pm Lainey Alvarado, DIRECT SALES PROFESSIONAL [Advanced Practice Nurse] - 10/31/16 9:30 am Mandi Faustin DO [Partnered Physician] - 10/13/16 9:20 am Prescriptions: LORazepam [Ativan] 2 mg PO Q4HR PRN #40 tablet PRN Reason: Agitation Vancomycin [Vancocin] 2,000 mg IV Q12HR 32 Days Diazepam [Valium] 10 mg PO Q6H 10 Days
--- NOTE | 2016-10-20 10:08 | Physician Discharge Referral ---
[facility] Referral Info Provider in Charge after Transfer: PCP Institutional Level of Care: Skilled - Diagnosis (1) Bacteremia Status: Acute (2) Bandemia Status: Acute (3) Endocarditis Status: Acute (4) Opiate withdrawal Status: Acute (5) PFO (patent foramen ovale) Status: Acute (6) CVA (cerebral vascular accident) Status: Chronic (7) Hepatitis C Status: Chronic (8) IV drug user Status: Chronic - Transfer Medications Prescriptions: LORazepam [Ativan] 2 mg PO Q4HR PRN #40 tablet PRN Reason: Agitation Vancomycin [Vancocin] 2,000 mg IV Q12HR 32 Days Diazepam [Valium] 10 mg PO Q6H 10 Days Home Medications: Citalopram [CeleXA] 20 mg PO DAILY 10/07/16 [History] Aspirin 81 mg PO DAILY tab.chew 10/18/16 [Rx] Diazepam [Valium] 10 mg PO Q6H 10 Days 10/18/16 [Rx] LORazepam [Ativan] 2 mg PO Q4HR PRN #40 tablet 10/18/16 [Rx] Nicotine Patch [Nicoderm] 21 mg TD DAILY #0 patch.td24 10/18/16 [Rx] Vancomycin [Vancocin] 2,000 mg IV Q12HR 32 Days 10/18/16 [Rx] Allergies/Adverse Reactions: Allergies No Known Allergies Allergy (Verified 09/14/16 05:23) - Respiratory Orders Smoking Cessation: Smoking cessation has been advised. For more information, call the [place] Tobacco Quit Line at 9-335-TLPC-NOW. - Advance Directives Code Status: Full Code - Treatments List/Other: Follow-up with primary care physician within the next 7 days. Follow up with his infectious diseases service within the next 3 weeks. Continue vancomycin until 11/20/2016. Taper diazepam, can use Ativan as needed. Follow-up with the surgical service at [facility] to consider closing his PFO surgically after completing antibiotic therapy. Continue aspirin. Follow-up with cardiology within the next 4 weeks - Diet Orders Regular CERTIFICATION: I certify that the transfer of the above named patient to an Extended Care Facility is necessary for the continuing treatment of the diagnosis listed. The above information is true and accurate reflection of patient's current condition. Confidential - Redisclosure prohibited without a patient's written consent.
--- NOTE | 2016-10-20 11:03 | Infectious Disease Progress No ---
Date of Encounter: 10/20/16 Time of Encounter: 10:15 - Assessment and Plan (1) Sepsis Current Visit: Yes Status: Resolved The patient had three SIRS criteria on admission. Lactic acid normal on admission. Received IV fluid resuscitation in the ED. Does not require vasopressors. Secondary to bacteremia vs. infective endocarditis. Improved. Tachycardia and bandemia have resolved. Hypotension appears to have resolved. Blood cultures obtained 10/07/16 are positive 1/2 sets for Baccilus cereus, sensitive to Vanc. Repeat blood cultures drawn 10/09/16 are negative. Qualifiers: Sepsis type: sepsis due to unspecified organism Qualified Code(s): A41.9 - Sepsis, unspecified organism (2) Bacteremia Current Visit: Yes Status: Acute Causative organism Bacillus cereus. Blood cultures drawn 10/07/16 are positive 1/2 sets for Bacillus cereus, vanc sensitive. Repeat blood cultures drawn 10/09/[address] chest negative for septic emboli. MRI of the brain negative for septic emboli. The patient has one major and one minor Burton's Criteria. It is possible that this is a contaminant; however, given the patient's history of IVDU, recent illness, and possible vegetation on STEPHANY, we will need to go ahead and treat as true infection. Continue Vancomycin IV for now (day 14). Pharmacy to dose. Goal trough approximately 15. Monitor renal function and for drug toxicity and dose-adjust antibiotics. Duration of treatment depends on the clinical picture, but likely 6 weeks of IV antibiotics. Treat through 11/20/16. Weekly CBC, BMP, and Vanc trough. Weekly PICC care. The patient is going to an LTAC where the physicians there can monitor and manage his antibiotics. No need for follow-up with [facility]. Will cancel patient 's appointment that I made previously. (3) Endocarditis Current Visit: Yes Status: Acute Causative organism Bacillus cereus. Echodensity noted during STEPHANY, but could not get patient adequately sedated to get a good look.. Repeat blood cultures drawn 10/09/16 are negative. No endocarditis stigmata noted on exam. The patient meets one major and one minor Burton's criteria making this possible IE. Rheumatoid factor negative. Coxiella burnettii antibody negative. Continue antibiotics as above for now. Duration of treatment depends on the clinical picture, but likely 6 weeks of IV antibiotics. Patient remains agreeable to placement in an ECF for IV antibiotic therapy. resident services coordinator has been consulted and is following and is working on placement. Will need weekly CBC and BMP. Will need weekly PICC care. Will need repeat STEPHANY once antibiotic therapy is completed. Patient should follow up with cardiology after discharge to establish care in preparation for repeat STEPHANY post-treatment. Qualifiers: Endocarditis type: infective Infective endocarditis organism: unspecified organism Chronicity: acute Qualified Code(s): I33.0 - Acute and subacute infective endocarditis (4) PFO (patent foramen ovale) Current Visit: Yes Status: Acute Patient declined surgery previously, but is now requesting surgery to have this fixed. Will likely need referral to [facility] once endocarditis treatment is complete. (5) Acute encephalopathy Current Visit: Yes Status: Resolved (6) CVA (cerebral vascular accident) Current Visit: Yes Status: Chronic Possibly secondary to PFO. MRI shows findings consistent with hypoxic/anoxic brain injury, but no new emboli. Qualifiers: CVA mechanism: embolism Precerebral and cerebral artery: unspecified cerebral artery Qualified Code(s): I63.40 - Cerebral infarction due to embolism of unspecified cerebral artery (7) IV drug user Current Visit: Yes Status: Chronic Check HIV nonreactive. Hep C positive. Follow up with GI as an outpatient. Hep Bc Ab in the [place]. Last used IV heroin 1 week prior to admission. Has a previous history of snorting cocaine as well. - Subjective Interval history: Patient seen and examined. No acute events noted overnight. Accepted at [facility]. Patient resting quietly in bed. States he feels well overall, but reports increased anxiety and intermittent panic attacks. Denies fevers or chills. Denies chest pain, shortness of breath, or cough. Denies nausea or vomiting. Reports two loose BMs per day. Denies abdominal pain or urinary complaints. Denies joint or back pain at this time. Denies oral thrush or new skin lesions. Infect Dis PN-Objective Data - Labs CBC & Chem 7: 10/18/16 03:20 10/18/16 03:20 Labs: Laboratory Results - last 24 hr 10/19/16 16:36 Vancomycin Trough 15.6 Cultures: Cultures 10/09/16 10:42 Blood Culture - Final Peripheral Venipuncture No growth. 10/09/16 10:42 Blood Culture - Final Peripheral Venipuncture No growth. Serology 10/12/16 10/12/16 10/07/16 Range/Units 04:46 04:46 15:10 Urine Color Yellow (Yellow) Urine Clarity Clear (Clear) Urine pH 7.0 (5.0-8.0) pH Units Ur Specific [place] 1.021 (1.010-1.025) Urine Protein Negative (Neg-Trace) mg/dL Urine Glucose (UA) Normal (Normal) mg/dL Urine Ketones Negative (Negative) mg/dL Urine Blood Negative (Negative) Urine Nitrite Negative (Negative) Urine Bilirubin Negative (Negative) Urine Urobilinogen Normal (Normal) mg/dL Ur Leukocyte Esterase Negative (Negative) Ur Culture Indicated? NO (NO) C.burnetii Phase I IgG NEGATIVE (Negative) C.burnetii Phase I IgM NEGATIVE (Negative) C.burnetii Phase II IgG NEGATIVE (Negative) C.burnetii Phase II IgM NEGATIVE (Negative) Hepatitis A IgM Ab Nonreactive (Nonreactive) Hep Bs Antigen Nonreactive (Nonreactive) Hep B Core IgM Ab [place] H (Nonreactive) Hepatitis C Ab Screen Reactive H (Nonreactive) HIV Ag/Ab Combo Qual Nonreactive (Nonreactive) Exam - Constitutional Vitals: Temp Pulse Resp BP Pulse Ox 97.9 F 79 18 93/66 96 10/20/16 08:00 10/20/16 08:00 10/20/16 08:00 10/20/16 08:00 10/20/16 08:00 General appearance: average body habitus, cooperative, no acute distress - Head Head exam: Present: atraumatic, normal inspection, normocephalic - Eye Eye exam: Present: EOMI, normal appearance, PERRL Pupils: Present: normal accommodation - ENT ENT exam: Present: mucous membranes moist - Neck Neck exam: Present: normal inspection - Respiratory Respiratory exam: Present: CTAB. Absent: rales, respiratory distress, rhonchi, wheezes - Cardiovascular Cardiovascular exam: Present: RRR, +S1, +S2 - GI/Abdominal GI/Abdominal exam: Present: normal bowel sounds, soft. Absent: distended, tenderness - Extremities Exam Extremities exam: Present: normal inspection. Absent: joint swelling, pedal edema, tenderness Additional comments: No endocarditis stigmata noted on exam. - Back Exam Back exam: Present: normal inspection. Absent: paraspinal tenderness, vertebral tenderness - Neurological Exam Neurological exam: Present: alert, oriented X3, no focal deficits - Psychiatric Psychiatric exam: Present: normal affect, normal mood - Skin Skin exam: Present: dry, intact, normal color, warm - Additional findings Additional findings: PICC line noted to the RUE With transparent dressing C/D/I. Consult Discharge Plan - Plan Additional Instructions: Follow-up with primary care physician within the next 7 days. Follow up with his infectious diseases service within the next 3 weeks. Continue vancomycin until 11/20/2016. Taper diazepam, can use Ativan as needed. Follow-up with the surgical service at [facility] to consider closing his PFO surgically after completing antibiotic therapy. Continue aspirin. Follow-up with cardiology within the next 4 weeks Referrals: Selene Clayton MD [Primary Care Provider] - 10/18/16 2:00 pm Mandi Faustin DO [Partnered Physician] - 10/13/16 9:20 am Prescriptions: LORazepam [Ativan] 2 mg PO Q4HR PRN #40 tablet PRN Reason: Agitation Vancomycin [Vancocin] 2,000 mg IV Q12HR 32 Days Diazepam [Valium] 10 mg PO Q6H 10 Days
[2016-10-20] MEDS ORDERED: FLU VACC QS2016-17 36MOS UP/PF 0.5 ML SYRINGE IM ONE (14:11)
[2016-10-20] MEDS ORDERED: Aminoglycoside Consult 1 EACH MC ONE (14:40)
== END 2016-10-20 14:41 | DRG 720 ==
LOC: EMEROO 09:54 → 2NENU 09:54 → SUATTDRO 14:48
PROVIDERS: ADMIT Internal Medicine; ATTEND Internal Medicine